=== PATIENT | female | born 1990 | race African-American/Black ===

== ENCOUNTER 2016-04-26 08:21 | Emergency (ER) | payer MEDICAID, OTHER ==
[~2016-04-26] VITALS: Wt 68.0 kg
[2016-04-26] MEDS ORDERED: ALBU18HF INHALATION (09:16)
--- NOTE | 2016-04-26 09:21 | ERD ---
ER Documentation Chief Complaint Date/Time DATE: 04/26/16 TIME: 09:17 Chief Complaint ran out of albuterol, mild sob for the past few days with dry cough HPI 26-year-old female with history of asthma is complaining of mild shortness of breath at night for the last 3-4 days. Patient reports feeling warm while she is short of breath, and has a dry cough at night. She had ran out albuterol inhaler. Patient is new to the area does not have a PCP. She is here for refill of the inhaler. Denies shortness of breath at this time. Denies runny nose or nasal congestion. Denies chest pain. Denies headaches. ROS All systems reviewed and are negative except as per history of present illness. Medications Home Meds Active Scripts Albuterol Sulfate* (Ventolin HFA*) 18 Gm Hfa.aer.ad, 2 PUFF INHALATION Q4H, #1 INHALER Prov:RILEY PARIS. SHIPPING COORDINATOR 04/26/16 PMhx/Soc History of asthma Physical Exam Vitals Vital Signs Date Time Temp Pulse Resp B/P Pulse Ox O2 Delivery O2 Flow Rate FiO2 04/26/16 08:22 98.8 91 20 121/68 99 Physical Exam General impression: Well-developed, well-nourished. Alert, oriented, in no acute distress Head: Normocephalic, atraumatic. Eyes: PERRL, EOM normal. Conjunctiva not injected. ENT: Nasal mucosa, oral mucosa and oropharynx are normal. Neck: Supple, nontender. No lymphadenopathy. No nuchal rigidity. Respiration: Normal respiratory effort. Lungs clear to auscultate bilaterally. No wheezes, rales or rhonchi. Cardiovascular: Regular rate and rhythm. No murmurs or extra heart sounds. Neuro: Mental status normal, speech normal. 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 Skin: Normal turgor. No rash or lesions. Psych: Normal mood and affect. Procedures/MDM Well-appearing 18-year-old female with history of asthma is here for refill of albuterol inhaler. Patient does not have any short of breath at this time, her lungs are clear to auscultate. She had no sign of acute asthma exacerbation. I doubt pneumonia, pneumothorax, or PE. Patient appears well, stable for discharge and outpatient management. Community clinic referral information provided for the patient. Medical decision making shared with patient and family. Education provided to patient and family. Patient and family expressed understanding of the plan. Medications on discharge: Albuterol HFA. Follow-up: Primary care provider in 2-3 days or return to ED if worse. Departure Diagnosis: Primary Impression: Asthma Asthma severity: unspecified severity Asthma complication type: uncomplicated Qualified Code: J45.909 - Uncomplicated asthma, unspecified asthma severity Condition: Good Patient Instructions: Asthma Referrals: [facility] YOU HAVE RECEIVED A MEDICAL SCREENING EXAM AND THE RESULTS INDICATE THAT YOU DO NOT HAVE A CONDITION THAT REQUIRES URGENT TREATMENT IN THE EMERGENCY DEPARTMENT. FURTHER EVALUATION AND TREATMENT OF YOUR CONDITION CAN WAIT UNTIL YOU ARE SEEN IN YOUR DOCTORS OFFICE WITHIN THE NEXT 1-2 DAYS. IT IS YOUR RESPONSIBILITY TO MAKE AN APPOINTMENT FOR FOLOW-UP CARE. IF YOU HAVE A PRIMARY DOCTOR --you should call your primary doctor and schedule an appointment IF YOU DO NOT HAVE A PRIMARY DOCTOR YOU CAN CALL OUR PHYSICIAN REFERRAL HOTLINE AT IF YOU CAN NOT AFFORD TO SEE A PHYSICIAN YOU CAN CHOSE FROM THE FOLLOWING [facility] [address] [facility]. [facility] [address] [facility] [address] [facility] [address] [facility]. [facility] [address] [facility]. [facility]. [address] Additional Instructions: Call your primary care doctor TOMORROW for an appointment during the next 2-3 days.See the doctor sooner or return here if your condition worsens before your appointment time. RILEY PARIS NP Apr 26, 2016 09:21
[2016-04-26 09:28] VITALS: BP 0/0; PULSE 80; RESP 20
== END 2016-04-26 09:39 | disposition home or self-care (01) ==
LOC: FTE 08:21
DX: J45.901 Unspecified asthma with (acute) exacerbation (principal)
CPT/HCPCS: 99283

== ENCOUNTER 2016-07-08 17:28 | Emergency (ER) | payer SELFPAY ==
[~2016-07-08] VITALS: Ht 167.6 cm; Wt 76.0 kg
[~2016-07-08 17:28] MED LIST: ALBU18HF INHALATION
[2016-07-08 17:29] VITALS: Ht 167.6 cm; Wt 76.0 kg
[2016-07-08] MEDS ORDERED: ALBUTEROL 0.083% (NEB) 2.5 MG/3 ML AMP HHN STA (18:17)
[2016-07-08] MEDS ORDERED: DEXAMETHASONE 10 MG/ML 1 ML INJ IM ONE (18:30)
[2016-07-08] MEDS ORDERED: IPRATROPIUM (NEB) 0.5 MG/2.5 ML AMP HHN ONE (18:30)
--- NOTE | 2016-07-08 19:34 | RADRPT ---
PROCEDURE: XR Chest. CLINICAL INDICATION: Shortness of breath. TECHNIQUE: Single frontal chest x-ray. COMPARISON: None. FINDINGS: The cardiomediastinal silhouette is unremarkable. There is no congestive heart failure.. No focal i nfiltrate is seen. There is no pleural effusion. There is no pneumothorax. The osseous structures are unremarkable. IMPRESSION: 1. No active disease. RPTAT: HMVK .Jose Juan Camarena MD, MD Date Time Electronically viewed and signed by .Jose Juan Camarena MD, MD on 07/08/2016 19:34 .K/
[2016-07-08] MEDS ORDERED: PRED20TA PO (20:02)
[2016-07-08] MEDS ORDERED: ALBU2.5V3 NEB (20:05)
[2016-07-08 20:18] VITALS: PULSE 89; RESP 20; TEMP 98.9
--- NOTE | 2016-07-09 01:54 | ERD ---
ER Documentation Chief Complaint Date/Time DATE: 07/09/16 TIME: 01:42 Chief Complaint FLU SYMPTOMS HPI This patient is a 26-year-old female with past medical history of asthma presenting to the emergency department for shortness of breath ongoing intermittently for the past 4 days. The patient states her symptoms have been worsening today. The patient only uses an inhaler at home every 4 hours as needed for asthma symptoms. The patient admits to mild tactile fevers at home. Symptoms are currently moderate. The patient denies chest pain, urinary symptoms, cough, or other symptoms at this time. ROS All systems reviewed and are negative except as per history of present illness. Medications Home Meds Active Scripts Albuterol Sulfate* (Albuterol Sulfate* Neb) 0.083%-3 Ml Neb, 2.5 MG NEB Q4 Y for SHORTNESS OF BREATH, #30 EA Prov:MITCHELL IGLESIAS PA-C 07/08/16 Prednisone* (Prednisone*) 20 Mg Tab, 40 MG PO DAILY for 4 Days, #8 TAB Prov:MITCHELL IGLESIAS PA-C 07/08/16 Albuterol Sulfate* (Ventolin HFA*) 18 Gm Hfa.aer.ad, 2 PUFF INHALATION Q4H, #1 INHALER Prov:RILEY PARIS NP 04/26/16 Allergies Allergies: Coded Allergies: No Known Allergy (Unverified , 04/26/16) PMhx/Soc History of Surgery: No Anesthesia Reaction: No Hx Neurological Disorder: No Hx Respiratory Disorders: Yes (ASTHMA) Hx Cardiac Disorders: No Hx Psychiatric Problems: No Hx Miscellaneous Medical Probl: No Hx Alcohol Use: Yes (OCC) Hx Substance Use: No Hx Tobacco Use: No Smoking Status: Never smoker Physical Exam Vitals Vital Signs Date Time Temp Pulse Resp B/P Pulse Ox O2 Delivery O2 Flow Rate FiO2 07/08/16 20:18 98.9 89 20 100 Room Air 07/08/16 18:42 89 18 100 21 07/08/16 17:29 99.9 104 18 125/73 100 Physical Exam Const: The patient is resting in the gurney in mild distress. Head: Atraumatic Eyes: Normal Conjunctiva ENT: Normal External Ears, Nose and Mouth. Neck: Full range of motion..~ No meningismus. Resp: Shallow inspiratory effort. No wheezing, rales, or rhonchi noted. There are no intercostal retractions or other signs of acute respiratory distress. Cardio: Regular rate and rhythm, no murmurs Abd: Soft, non tender, non distended. Normal bowel sounds Skin: No petechiae or rashes Back: No midline or flank tenderness Ext: No cyanosis, or edema Neur: Awake and alert Psych: Normal Mood and Affect Results 24 hrs Current Medications Medications (Trade) Dose Ordered Sig/Kallie Route PRN Reason Start Time Stop Time Status Last Admin Dose Admin Dexamethasone (Decadron) 10 mg ONCE ONCE IM 07/08/16 18:30 07/08/16 18:31 DC 07/08/16 18:33 Albuterol (Proventil 0.083% (Neb)) 2.5 mg ONCE STAT HHN 07/08/16 18:17 07/08/16 18:19 DC 07/08/16 18:42 Ipratropium [place] (Atrovent 0.02% (Neb)) 0.5 mg ONCE ONCE HHN 07/08/16 18:30 07/08/16 18:31 DC 07/08/16 18:42 PROCEDURE: XR Chest. CLINICAL INDICATION: Shortness of breath. TECHNIQUE: Single frontal chest x-ray. COMPARISON: None. FINDINGS: The cardiomediastinal silhouette is unremarkable. There is no congestive heart failure.. No focal infiltrate is seen. There is no pleural effusion. There is no pneumothorax. The osseous structures are unremarkable. IMPRESSION: 1. No active disease. RPTAT: HMVK .Jose Juan Camarena MD, Date Time Electronically viewed and signed by .Jose Juan Camarena MD, MD on 07/08/2016 19:34 .K/ CC: MITCHELL IGLESIAS PA-C Procedures/[facility] 26-year-old female presents to the emergency department secondary to complaints of shortness of breath. On physical examination the patient is slightly tachycardic at 104. The patient's pulse ox is 100% on room air although the patient does appear to be in slight distress secondary to difficulty breathing. There are no intercostal retractions or other signs of acute respiratory distress but because of the patient's shallow inspiratory effort I did treat her in the department with a medication nebulizer with albuterol and ipratropium and she was feeling significantly improved on reevaluation. Chest x -ray was negative for any infiltrates or other abnormalities. The patient is stable for outpatient management with a prescription for albuterol and prednisone. The patient understands and agrees with the discharge plan and diagnosis. I have low suspicion for pneumonia, status asthmaticus, or other emergent conditions. Strict ER return precautions were discussed and the patient is to have close follow-up with the primary care physician. Departure Diagnosis: Primary Impression: Asthma exacerbation Condition: Fair Patient Instructions: Asthma Medications, My Asthma Symptom Diary Referrals: [facility] YOU HAVE RECEIVED A MEDICAL SCREENING EXAM AND THE RESULTS INDICATE THAT YOU DO NOT HAVE A CONDITION THAT REQUIRES URGENT TREATMENT IN THE EMERGENCY DEPARTMENT. FURTHER EVALUATION AND TREATMENT OF YOUR CONDITION CAN WAIT UNTIL YOU ARE SEEN IN YOUR DOCTORS OFFICE WITHIN THE NEXT 1-2 DAYS. IT IS YOUR RESPONSIBILITY TO MAKE AN APPOINTMENT FOR FOLOW-UP CARE. IF YOU HAVE A PRIMARY DOCTOR --you should call your primary doctor and schedule an appointment IF YOU DO NOT HAVE A PRIMARY DOCTOR YOU CAN CALL OUR PHYSICIAN REFERRAL HOTLINE AT IF YOU CAN NOT AFFORD TO SEE A PHYSICIAN YOU CAN CHOSE FROM THE FOLLOWING [facility] CLINICS [facility] [address] [facility]. [facility] [address] [facility] [address] [facility] [address] [facility]. [facility] [address] [facility]. [facility] [address] Additional Instructions: Follow up with your PCP within the next 1-3 days for a repeat evaluation and a possible referral to a specialist, if required. Return the the emergency department immediately if symptoms worsen or change. If you have any questions regarding medications, ask your pharmacist or us before you leave. If any adverse reactions, occur while taking your medications, discontinue the treatment and return to the emergency department immediately. If any new or worsening symptoms, uncontrolled fevers, or other unexplained symptoms occur, return to the emergency department immediately. Take your medications as directed, and complete the entire course of treatment. MITCHELL IGLESIAS PA-C July 09, 2016 01:53
== END 2016-07-08 20:15 | disposition home or self-care (01) ==
LOC: FTE 17:28
DX: J45.901 Unspecified asthma with (acute) exacerbation (principal)
CPT/HCPCS: 71010; 94664; 96372; 99284; J1100

== ENCOUNTER 2016-08-03 11:37 | Emergency (ER) | payer MEDICAID ==
[~2016-08-03] VITALS: Ht 167.6 cm; Wt 77.5 kg
[~2016-08-03 11:37] MED LIST changes: +ALBU2.5V3 NEB; +PRED20TA PO
[2016-08-03 11:39] VITALS: Ht 167.6 cm; Wt 77.5 kg
[2016-08-03 12:21] LABS: ADD SCAN DIFF NO
[2016-08-03 12:28] LABS: BASOPHILS % 0.3 % (0.0-2.0); EOSINOPHILS # 0.1 10^3/ul (0.0-0.5); EOSINOPHILS % 1.9 % (0.0-7.0); HEMATOCRIT 41.7 % (37.0-47.0); HEMOGLOBIN 13.4 g/dl (12.0-16.0); LYMPHOCYTES # 2.2 10^3/ul (0.8-2.9); LYMPHOCYTES % 34.5 % (15.0-51.0); MEAN CORPUSCULAR HEMOGLOBIN 27.6 pg (29.0-33.0); MEAN CORPUSCULAR HGB CONC 32.1 g/dl (32.0-37.0); MONOCYTE # 0.7 10^3/ul (0.3-0.9); MONOCYTES % 10.1 % (0.0-11.0); NEUTROPHIL # 3.4 10^3/ul (1.6-7.5); PLATELET COUNT 285 10^3/UL (140-415); RED BLOOD COUNT 4.85 10^6/ul (4.20-5.40); RED CELL DISTRIBUTION WIDTH 14.2 % (11.5-14.5); WHITE BLOOD COUNT 6.4 10^3/ul (4.8-10.8)
[2016-08-03 12:34] LABS: ADD UMIC YES; UR BILIRUBIN (Dip) NEGATIVE (NEGATIVE); UR BLOOD (Dip) TRACE (NEGATIVE); UR CLARITY CLEAR (CLEAR); UR COLOR LT. YELLOW (YELLOW); UR GLUCOSE (Dip) NEGATIVE (NEGATIVE); UR KETONES (Dip) NEGATIVE (NEGATIVE); UR LEUKOCYTE ESTERASE (Dip) NEGATIVE (NEGATIVE); UR NITRITE (Dip) NEGATIVE (NEGATIVE); UR TOTAL PROTEIN (Dip) NEGATIVE (NEGATIVE); UR UROBILINOGEN (Dip) 0.2 E.U./dL (0.1-1.0)
[2016-08-03 12:43] LABS: ALBUMIN 5.1 g/dl (3.3-4.9); ALBUMIN/GLOBULIN RATIO 1.59; BILIRUBIN,INDIRECT 0.6 mg/dl (0-1.1); BILIRUBIN,TOTAL 0.6 mg/dl (0.2-1.3); CALCIUM 9.6 mg/dl (8.4-10.2); CREATININE 0.95 mg/dl (0.44-1.00); POTASSIUM 3.9 mmol/L (3.5-5.1); TOTAL PROTEIN 8.3 g/dl (6.1-8.1)
[2016-08-03 13:09] LABS: URINE RBCS 0-2 /HPF (0)
--- NOTE | 2016-08-03 13:24 | RADRPT ---
PROCEDURE: US Pelvis. CLINICAL INDICATION: Pelvic pain TECHNIQUE: Multiple sonographic images of the pelvis were obtained utilizing a transabdominal and endovaginal technique. The images were reviewed on a PACS workstation. COMPARISON: None. FINDINGS: The uterus is normal in size and demonstrates a normal appearance of the myometrium. The endometria l stripe is homogeneous in appearance and has the thickness of 5.5 mm. No intrauterine gestation is noted. Normal Doppler flow is identified in both ovaries. The ovaries are enlarged. The right ovary measures 6.3 x 5.3 x 5.5 cm. There is a 4.8 x 4.2 cm simple cyst in the right ovary. The left ovary measures 7.5 x 5.6 x 5.8 cm. There is a large complex cyst in the left ovary measurin g 6.5 x 5.0 cm. There is echogenic internal debris and a thick septation within this cyst. No free fluid is present within the pelvis.. RPTAT: AA IMPRESSION: No intrauterine gestation visualized. Enlarged bilateral ovaries. Large simple cyst in the right ovary measuring 4.8 cm. Large complex c yst in the left ovary measuring 6.5 cm. Differential diagnosis includes early , missed or ectopic . Follow-up ultrasound and HCG levels is recommended. .Negrito Herrera MD, MD Date Time Electronically viewed and signed by .Negrito Herrera MD, MD on 08/03/2016 13:24 .S/
[2016-08-03] MEDS ORDERED: ACET325T33 PO (15:25)
[2016-08-03] MEDS ORDERED: ACETAMINOPHEN 325 MG TAB PO ONE (15:30)
--- NOTE | 2016-08-03 15:43 | ERD ---
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 Reports that both of her breasts are also eating. States that it is a sharp pain. States that her last menses was on July 24, 2016. Denies any chest pain, shortness of breath, abdominal pain, nausea, vomiting, diarrhea, fever, chills. ROS All systems reviewed and are negative except as per history of present illness. Medications Home Meds Active Scripts Acetaminophen* (Tylenol*) 325 Mg Tablet, 1 TAB PO Q6 Y for PAIN AND OR ELEVATED TEMP, #20 TAB Prov:SUZIE SIMS PA-C 08/03/16 Albuterol Sulfate* (Albuterol Sulfate* Neb) 0.083%-3 Ml Neb, 2.5 MG NEB Q4 Y for SHORTNESS OF BREATH, #30 EA Prov:MITCHELL IGLESIAS PA-C 07/08/16 Prednisone* (Prednisone*) 20 Mg Tab, 40 MG PO DAILY for 4 Days, #8 TAB Prov:MITCHELL IGLESIAS PA-C 07/08/16 Albuterol Sulfate* (Ventolin HFA*) 18 Gm Hfa.aer.ad, 2 PUFF INHALATION Q4H, #1 INHALER Prov:RILEY PARIS TAG MARKER 04/26/16 Allergies Allergies: Coded Allergies: No Known Allergy (Unverified , 08/06/16) PMhx/Soc History of Surgery: Yes (Right breast tumor) Anesthesia Reaction: No Hx Neurological Disorder: No Hx Respiratory Disorders: Yes (ASTHMA) Hx Cardiac Disorders: No Hx Psychiatric Problems: No Hx Miscellaneous Medical Probl: No Hx Alcohol Use: Yes (OCC) Hx Substance Use: No Hx Tobacco Use: No Smoking Status: Never smoker Physical Exam Vitals Vital Signs Date Time Temp Pulse Resp B/P Pulse Ox O2 Delivery O2 Flow Rate FiO2 08/03/16 16:02 98.2 78 20 111/62 98 Room Air 08/03/16 11:39 98.5 108 20 107/60 98 Physical Exam Const: Rsk-bbd-jmukabibe, well-nourished. In no acute distress. Head: Atraumatic, normocephalic Eyes: Normal Conjunctiva without injection. No purulent discharge. ENT: Normal external ear, nose. Moist oropharynx without tonsillar exudates. Non -erythematous pharynx. Uvula midline. No drooling. No trismus. Neck: No cervical midline tenderness. Full range of motion. No meningismus. No cervical lymphadenopathy. No JVD. Resp: Clear to auscultation bilaterally. No wheezing, rhonchi, rales, or crackles. No accessory muscle use. No retractions. Cardio: Regular rate and rhythm. No murmurs, rubs or gallops. Abd: Soft, lower abdominal tenderness, non distended. Normal bowel sounds. No palpable masses. No rebound tenderness. No guarding. Negative McBurney's point. Negative psoas sign. Negative obturator sign. Skin: No petechiae or rashes Back: No midline tenderness. No CVA tenderness. Ext: No cyanosis, or edema. Neur: Awake and alert. Normal gait. Normal coordination. Psych: Normal Mood and Affect Result Diagram: 08/03/16 1210 08/03/16 1210 Results 24 hrs Laboratory Tests Test 08/03/16 12:00 08/03/16 12:10 Urine Color LT. YELLOW Urine Clarity CLEAR Urine pH 6.0 Urine Specific [place] 1.015 Urine Ketones NEGATIVE Urine Nitrite NEGATIVE Urine Bilirubin NEGATIVE Urine Urobilinogen 0.2 E.U./dL Urine Leukocyte Esterase NEGATIVE Urine Microscopic RBC 0-2/HPF Urine Microscopic WBC 0-2/HPF Urine Epithelial Cells FEW Urine Hemoglobin TRACE Urine Glucose NEGATIVE% Urine Total Protein NEGATIVE White Blood Count 6.410^3/ul Red Blood Count 4.8510^6/ul Hemoglobin 13.4g/dl Hematocrit 41.7% Mean Corpuscular Volume 86.0fl Mean Corpuscular Hemoglobin 27.6pg Mean Corpuscular Hemoglobin Concent 32.1g/dl Red Cell Distribution Width 14.2% Platelet Count 51015^3/UL Mean Platelet Volume 9.0fl Neutrophils % 53.0% Lymphocytes % 34.5% Monocytes % 10.1% Eosinophils % 1.9% Basophils % 0.3% Nucleated Red Blood Cells % 0.0/100WBC Neutrophils # 3.410^3/ul Lymphocytes # 2.210^3/ul Monocytes # 0.710^3/ul Eosinophils # 0.110^3/ul Basophils # 0.010^3/ul Nucleated Red Blood Cells # 0.010^3/ul Sodium Level 141mmol/L Potassium Level 3.9mmol/L Chloride Level 106mmol/L Carbon Dioxide Level 26mmol/L Anion Gap 13 Blood Urea Nitrogen 9mg/dl Creatinine 0.95mg/dl Glucose Level 79mg/dl Calcium Level 9.6mg/dl Total Bilirubin 0.6mg/dl Direct Bilirubin 0.00mg/dl Indirect Bilirubin 0.6mg/dl Aspartate Amino Transf (AST/SGOT) 22IU/L Alanine Aminotransferase (ALT/SGPT) 27IU/L Alkaline Phosphatase 74IU/L Total Protein 8.3g/dl Albumin 5.1g/dl Globulin 3.20g/dl Albumin/Globulin Ratio 1.59 Lipase 107U/L Beta HCG, Quantitative 121.4mIU/ml Current Medications Medications (Trade) Dose Ordered Sig/Kallie Route PRN Reason Start Time Stop Time Status Last Admin Dose Admin Acetaminophen (Tylenol Tab) 650 mg ONCE ONCE PO 08/03/16 15:30 08/03/16 15:31 DC 08/03/16 15:30 Procedures/MDM This is a 26-year-old female patient with no significant past medical history presents the ED complaining of lower abdominal pain that started 2 weeks ago. Patient is afebrile nontoxic appearing. Patient has normal vital signs. An ultrasound, beta-hCG, CBC, type and RH, UA was ordered to evaluate patient. CBC: No evidence of severe infection or anemia Urine: No elevation in nitrites, leukocyte esterase, hematuria. No evidence of UTI Rh: A positive. No indication for Rhogam at this time. beta Hc.4 PROCEDURE: Bilateral breast ultrasound. CLINICAL INDICATION: Bilateral breast pain. TECHNIQUE: Ultrasound of the whole right and left breast was performed with a high frequency linear transducer. The images were reviewed on a high-resolution PACS monitor. COMPARISON: None available. FINDINGS: Right breast: There is no mass, cyst, or sonographic abnormality. The axillary region is unremarkable. Left breast: There is no mass, cyst, or sonographic abnormality. The axillary region is unremarkable. IMPRESSION: 1. No sonographic evidence of malignancy. 2. No acute abnormality or findings to suggest a source of the patient's symptoms. BIRADS 1: Follow-up as clinically warranted. Otherwise, the patient can begin routine annual screening mammography at age 38. A reminder letter will be sent to the patient for their next mammogram through our data base. PROCEDURE: US Pelvis. CLINICAL INDICATION: Pelvic pain TECHNIQUE: Multiple sonographic images of the pelvis were obtained utilizing a transabdominal and endovaginal technique. The images were reviewed on a PACS workstation. COMPARISON: None. FINDINGS: The uterus is normal in size and demonstrates a normal appearance of the myometrium. The endometrial stripe is homogeneous in appearance and has the thickness of 5.5 mm. No intrauterine gestation is noted. Normal Doppler flow is identified in both ovaries. The ovaries are enlarged. The right ovary measures 6.3 x 5.3 x 5.5 cm. There is a 4.8 x 4.2 cm simple cyst in the right ovary. The left ovary measures 7.5 x 5.6 x 5.8 cm. There is a large complex cyst in the left ovary measuring 6.5 x 5.0 cm. There is echogenic internal debris and a thick septation within this cyst. No free fluid is present within the pelvis.. RPTAT: AA IMPRESSION: No intrauterine gestation visualized. Enlarged bilateral ovaries. Large simple cyst in the right ovary measuring 4.8 cm. Large complex cyst in the left ovary measuring 6.5 cm. Differential diagnosis includes early , missed or ectopic . Follow-up ultrasound and HCG levels is recommended. Patient's bleeding symptoms have stabilized while in the department. Differential diagnosis includes early , missed . Patient strictly instructed to return to the ED in 2 days to rule out ectopic . Low suspicion for symptomatic anemia, sepsis, PID, appendicitis, ovarian torsion, tubo-ovarian abscess, surgical abdomen, or other emergent conditions. Patient was educated that there is a risk for threatened . Differential diagnosis considered include but is not limited to mastitis, fibroadenoma, cyst, fibrocystic changes. Low suspicion for galactocele, fat necrosis, malignancy, deep space infection, sepsis, cellulitis, or other emergent conditions. Discharge medications: Tylenol Patient to follow up with INTEGRATION SOFTWARE DEVELOPER in 2 days for further evaluation and treatment. Patient is to return sooner to the ED for any worsening symptoms. Patient's questions were answered. Patient understood and agreed with discharge plan. Departure Diagnosis: Primary Impression: Abdominal pain Abdominal location: unspecified location Qualified Code: R10.9 - Abdominal pain, unspecified location Additional Impressions: Breast pain Vaginal bleeding Condition: Stable Patient Instructions: Breast Self-Exam (BSE), Vaginal Bleed in , Abdominal Pain, Early Referrals: [facility] YOU HAVE RECEIVED A MEDICAL SCREENING EXAM AND THE RESULTS INDICATE THAT YOU DO NOT HAVE A CONDITION THAT REQUIRES URGENT TREATMENT IN THE EMERGENCY DEPARTMENT. FURTHER EVALUATION AND TREATMENT OF YOUR CONDITION CAN WAIT UNTIL YOU ARE SEEN IN YOUR DOCTORS OFFICE WITHIN THE NEXT 1-2 DAYS. IT IS YOUR RESPONSIBILITY TO MAKE AN APPOINTMENT FOR FOLOW-UP CARE. IF YOU HAVE A PRIMARY DOCTOR --you should call your primary doctor and schedule an appointment IF YOU DO NOT HAVE A PRIMARY DOCTOR YOU CAN CALL OUR PHYSICIAN REFERRAL HOTLINE AT IF YOU CAN NOT AFFORD TO SEE A PHYSICIAN YOU CAN CHOSE FROM THE FOLLOWING [facility] [address] [facility] [address] [facility] [address] [facility] [address] [address] [facility] [address] [facility]. [facility]. [address] [facility]. [facility] YOU HAVE RECEIVED A MEDICAL SCREENING EXAM AND THE RESULTS INDICATE THAT YOU DO NOT HAVE A CONDITION THAT REQUIRES URGENT TREATMENT IN THE EMERGENCY DEPARTMENT. FURTHER EVALUATION AND TREATMENT OF YOUR CONDITION CAN WAIT UNTIL YOU ARE SEEN IN YOUR DOCTORS OFFICE WITHIN THE NEXT 1-2 DAYS. IT IS YOUR RESPONSIBILITY TO MAKE AN APPOINTMENT FOR FOLOW-UP CARE. IF YOU HAVE A PRIMARY DOCTOR --you should call your primary doctor and schedule and appointment IF YOU DO NOT HAVE A PRIMARY DOCTOR YOU CAN CALL OUR PHYSICIAN REFERRAL HOTLINE AT . IF YOU CAN NOT AFFORD TO SEE A PHYSICIAN YOU CAN CHOSE FROM THE FOLLOWING [facility] INSTITUTIONS: [facility] [address] [place] [address] [facility] [address] [place] [address] [facility] + [facility] [address] [place] [address] INTEGRATION SOFTWARE DEVELOPER [place] [address] [facility] [address] [place] [address] OFFICE FAX , [address] [address] [place] [address] [address] COREA MARTHA [address] [place] [address] [address] [facility] [address], [address], [facility] [address] [address] [facility] [address] [facility] [place] [address] [facility] [address] [place] [address] [address] [facility] [address] - [address] MOTA DEISY [address] [facility] [address] [address], [facility] [address] [facility]. [address], [place] [address] [address] JORGENSEN, [facility] [address] [place], [place] [id number] [facility] Hours: 8:00 am - 5:00 pm Additional Instructions: Call your INTEGRATION SOFTWARE DEVELOPER or here in the ED to repeat beta Hcg and ultrasound in 2 days. Return to the ED the sooner or return here if your condition worsens before your appointment time. SUZIE SIMS PA-C Aug 03, 2016 15:43
--- NOTE | 2016-08-03 15:51 | RADRPT ---
PROCEDURE: Bilateral breast ultrasound. CLINICAL INDICATION: Bilateral breast pain. TECHNIQUE: Ultrasound of the whole right and left breast was performed with a high frequency linear transducer. The images were reviewed on a high-resolution PACS monitor. COMPARISON: None available. FINDINGS: Right breast: There is no mass, cyst, or sonographic abnormality. The axillary region is unremarkable. Left breast: There is no mass, cyst, or sonographic abnormality. The axillary region is unremarkable. IMPRESSION: 1. No sonographic evidence of malignancy. 2. No acute abnormality or findings to suggest a source of the patient's symptoms. BIRADS 1: Follow-up as clinically warranted. Otherwise, the patient can begin routine annual screen ing mammography at age 38. A reminder letter will be sent to the patient for their next mammogram through our data base. RPTAT: GG .Saad Cam MD, Date Time Electronically viewed and signed by .Saad Cam MD, on 08/03/2016 15:50 .P/
[2016-08-03 16:02] VITALS: BP 111/62; PULSE 78; RESP 20; TEMP 98.2
== END 2016-08-03 16:03 | disposition home or self-care (01) ==
LOC: FTE 11:37
DX: R10.30 Lower abdominal pain, unspecified (principal); N64.4 Mastodynia; N93.9 Abnormal uterine and vaginal bleeding, unspecified; J45.909 Unspecified asthma, uncomplicated; R10.2 Pelvic and perineal pain
CPT/HCPCS: 76641; 76801; 76817; 80053; 81001; 83690; 84702; 85025; 86900; 86901; Z7610; 36415

== ENCOUNTER 2016-08-06 20:16 | Emergency (ER) | payer MEDICAID ==
[~2016-08-06] VITALS: Wt 78.0 kg
[~2016-08-06 20:16] MED LIST changes: +ACET325T33 PO
[2016-08-06 22:19] LABS: ADD SCAN DIFF NO
[2016-08-06 22:21] LABS: BASOPHILS % 0.1 % (0.0-2.0); EOSINOPHILS # 0.1 10^3/ul (0.0-0.5); EOSINOPHILS % 1.7 % (0.0-7.0); HEMATOCRIT 40.5 % (37.0-47.0); HEMOGLOBIN 13.2 g/dl (12.0-16.0); LYMPHOCYTES # 3.4 10^3/ul (0.8-2.9); LYMPHOCYTES % 43.3 % (15.0-51.0); MEAN CORPUSCULAR HEMOGLOBIN 28.1 pg (29.0-33.0); MEAN CORPUSCULAR HGB CONC 32.6 g/dl (32.0-37.0); MEAN CORPUSCULAR VOLUME 86.2 fl (82.0-101.0); MEAN PLATELET VOLUME 9.1 fl (7.4-10.4); MONOCYTE # 0.7 10^3/ul (0.3-0.9); MONOCYTES % 8.3 % (0.0-11.0); NEUTROPHIL # 3.6 10^3/ul (1.6-7.5); NEUTROPHILS % 46.3 % (39.0-77.0); PLATELET COUNT 290 10^3/UL (140-415); WHITE BLOOD COUNT 7.8 10^3/ul (4.8-10.8)
[2016-08-06 22:24] LABS: ADD UMIC YES; UR BILIRUBIN (Dip) NEGATIVE (NEGATIVE); UR BLOOD (Dip) TRACE (NEGATIVE); UR CLARITY CLEAR (CLEAR); UR COLOR LT. YELLOW (YELLOW); UR GLUCOSE (Dip) NEGATIVE (NEGATIVE); UR KETONES (Dip) NEGATIVE (NEGATIVE); UR LEUKOCYTE ESTERASE (Dip) NEGATIVE (NEGATIVE); UR NITRITE (Dip) NEGATIVE (NEGATIVE); UR TOTAL PROTEIN (Dip) NEGATIVE (NEGATIVE); UR UROBILINOGEN (Dip) 0.2 E.U./dL (0.1-1.0)
[2016-08-06 22:31] LABS: URINE RBCS NONE SEEN /HPF (0)
--- NOTE | 2016-08-06 23:11 | RADRPT ---
PROCEDURE: US OB. CLINICAL INDICATION: . Pain. TECHNIQUE: Multiple sonographic images of the pelvis were obtained. Transabdominal and transvagin al views of the pelvis are available for review. The images were reviewed on a PACS workstation. COMPARISON: 08/03/2016 FINDINGS: An intrauterine probable early gestational sac at 2.6 mm is identified, corresponding to 4 weeks 6 d ays size.. No pole or cardiac activity is detected. No subchorionic hemorrhage is identifi ed. The ovaries unchanged. Bilateral ovarian vascular flow is present. There is a complex likely hemorrhagic 4.4 x 2.9 x 3 cm right ovarian cyst. There is a large simple 5 x 5.9 x 6 cm left ovaria n cyst.. There is no adnexal mass. Small amount of free fluid is noted in the posterior caliber sa c. IMPRESSION: Intrauterine sac-like structure at 4 weeks 6 days size without pole or heart motion, likely re presents an early intrauterine too small to identify a pole. No suspicious adnexal mass or free fluid to suggest ectopic , although this cannot be excluded. Redemonstrated c omplex right and simple left ovarian cysts. Recommend correlation with quantitative beta HCG. RPTAT: HMVK .Jose Juan Camarena MD, Date Time Electronically viewed and signed by .Jose Juan Camarena MD, on 08/06/2016 23:11 .K/
[2016-08-06 23:42] VITALS: BP 118/72; PULSE 84; RESP 18; TEMP 98.8
--- NOTE | 2016-08-07 01:33 | ERD ---
ER Documentation Chief Complaint Date/Time DATE: 08/07/16 TIME: 01:30 Chief Complaint was told to come in 2 days for follow up. c/o abd pain HPI 26-year-old female who is A1 comes emergency department for recheck for her pelvic pain. She was seen here 3 days ago and had initially presented with pelvic pain, no bleeding, she states that she does have the same pelvic pain without change and has not had any bleeding since. She states that she is here to recheck, her beta quantitative was 121 previously, without any intrauterine seen. There are bilateral ovarian cyst seen. Pain is diffuse, achy, no difference in her previous visit. She denies fevers, chills. ROS All systems reviewed and are negative except as per history of present illness. Medications Home Meds Active Scripts Acetaminophen* (Tylenol*) 325 Mg Tablet, 1 TAB PO Q6 Y for PAIN AND OR ELEVATED TEMP, #20 TAB Prov:SUZIE SIMS PA-C 08/03/16 Albuterol Sulfate* (Albuterol Sulfate* Neb) 0.083%-3 Ml Neb, 2.5 MG NEB Q4 Y for SHORTNESS OF BREATH, #30 EA Prov:MITCHELL IGLESIAS PA-C 07/08/16 Prednisone* (Prednisone*) 20 Mg Tab, 40 MG PO DAILY for 4 Days, #8 TAB Prov:MITCHELL IGLESIAS PA-C 07/08/16 Albuterol Sulfate* (Ventolin HFA*) 18 Gm Hfa.aer.ad, 2 PUFF INHALATION Q4H, #1 INHALER Prov:RILEY PARIS NP 04/26/16 Allergies Allergies: Coded Allergies: No Known Allergy (Unverified , 08/06/16) PMhx/Soc History of Surgery: Yes (Right breast tumor) Anesthesia Reaction: No Hx Neurological Disorder: No Hx Respiratory Disorders: Yes (ASTHMA) Hx Cardiac Disorders: No Hx Psychiatric Problems: No Hx Miscellaneous Medical Probl: No Hx Alcohol Use: Yes (OCC) Hx Substance Use: No Hx Tobacco Use: No Physical Exam Vitals Vital Signs Date Time Temp Pulse Resp B/P Pulse Ox O2 Delivery O2 Flow Rate FiO2 08/06/16 23:42 98.8 84 18 118/72 99 Room Air 08/06/16 20:21 98.3 104 20 128/87 97 Physical Exam General: Well-developed, well-nourished. The patient appears in no acute distress. HEENT: Head is normocephalic, atraumatic. No scleral icterus. Neck: Supple. Nontender. Lungs: Clear to auscultation. Normal air movement. Heart: Regular rate and rhythm. S1 and S2 are normal. No murmurs, gallops, or rubs. Abdomen: Soft, nontender, nondistended. Bowel sounds are normoactive. Extremities: No clubbing or cyanosis. Normal pulses. Moving extremities x 4. No weakness. Neurologic: Alert and oriented 3. No focal deficits. Skin: Normal turgor. No rash or lesions. Result Diagram: 08/06/162153 Results 24 hrs Laboratory Tests Test 08/06/16 21:54 White Blood Count 7.810^3/ul Red Blood Count 4.7010^6/ul Hemoglobin 13.2g/dl Hematocrit 40.5% Mean Corpuscular Volume 86.2fl Mean Corpuscular Hemoglobin 28.1pg Mean Corpuscular Hemoglobin Concent 32.6g/dl Red Cell Distribution Width 14.0% Platelet Count 66245^3/UL Mean Platelet Volume 9.1fl Neutrophils % 46.3% Lymphocytes % 43.3% Monocytes % 8.3% Eosinophils % 1.7% Basophils % 0.1% Nucleated Red Blood Cells % 0.0/100WBC Neutrophils # 3.610^3/ul Lymphocytes # 3.410^3/ul Monocytes # 0.710^3/ul Eosinophils # 0.110^3/ul Basophils # 0.010^3/ul Nucleated Red Blood Cells # 0.010^3/ul Urine Color LT. YELLOW Urine Clarity CLEAR Urine pH 5.5 Urine Specific [place] 1.015 Urine Ketones NEGATIVE Urine Nitrite NEGATIVE Urine Bilirubin NEGATIVE Urine Urobilinogen 0.2 E.U./dL Urine Leukocyte Esterase NEGATIVE Urine Microscopic RBC NONE SEEN/HPF Urine Microscopic WBC NONE SEEN/HPF Urine Epithelial Cells FEW Urine Hemoglobin TRACE Urine Glucose NEGATIVE% Urine Total Protein NEGATIVE Beta HCG, Quantitative 139.1mIU/ml DIAGNOSTIC IMAGING REPORT Patient: DANETTE DIEZ : 1990 Age: 26 Sex: F MR #: [id number] DOS: 08/06/164 Ordering MD: MELINDA SNYDER PA-C Location: [facility] Room/Bed: PROCEDURE: US OB. CLINICAL INDICATION: . Pain. TECHNIQUE: Multiple sonographic images of the pelvis were obtained. Transabdominal and transvaginal views of the pelvis are available for review. The images were reviewed on a PACS workstation. COMPARISON: 08/03/2016 FINDINGS: An intrauterine probable early gestational sac at 2.6 mm is identified, corresponding to 4 weeks 6 days size.. No pole or cardiac activity is detected. No subchorionic hemorrhage is identified. The ovaries unchanged. Bilateral ovarian vascular flow is present. There is a complex likely hemorrhagic 4.4 x 2.9 x 3 cm right ovarian cyst. There is a large simple 5 x 5.9 x 6 cm left ovarian cyst.. There is no adnexal mass. Small amount of free fluid is noted in the posterior caliber sac. IMPRESSION: Intrauterine sac-like structure at 4 weeks 6 days size without pole or heart motion, likely represents an early intrauterine too small to identify a pole. No suspicious adnexal mass or free fluid to suggest ectopic , although this cannot be excluded. Redemonstrated complex right and simple left ovarian cysts. Recommend correlation with quantitative beta HCG. RPTAT: HMVK .Jose Juan Camarena MD, Date Time Electronically viewed and signed by .Jose Juan Camarena MD, MD on 08/06/2016 23:11 .K/ CC: MELINDA SNYDER PA-C Procedures/MDM MDM: 18-year-old female comes in with pelvic pain, recheck with positive test. Her beta quantitative is essentially the same in the 130s as compared to her previous 121. Pelvic ultrasound previously did not show any intrauterine sac, ovarian cysts seen bilaterally. As compared to previous ultrasound, today's ultrasound shows the same cyst, there are no adnexal masses or evidence of ectopic , there appears to be a small structure that is intrauterine that correlates to 4 weeks and 6 days. There is no pole or yolk sac. I have informed the patient that this is not rule out ectopic , as this is no definite intrauterine and strict ER return precautions were discussed at length with her. I suspect that this is likely an early intrauterine versus threatened given the slow climb of the beta quant at this time. Still cannot rule out ectopic therefore she needs to be checked in 1-2 days, or return sooner for any worsening symptoms including increased pain, or bleeding. Departure Diagnosis: Primary Impression: Pelvic pain Condition: Good Patient Instructions: : Your First Trimester Changes, Ovarian Cyst Additional Instructions: Recheck your pain in 1-2 days. Return sooner for any worsening or new symptoms. MELINDA SNYDER PA-C Aug 07, 2016 01:33
== END 2016-08-06 23:42 | disposition home or self-care (01) ==
LOC: FTE 20:16
DX: O26.891 Other specified pregnancy related conditions, first trimester (principal); R10.2 Pelvic and perineal pain; J45.909 Unspecified asthma, uncomplicated; O99.511 Diseases of the respiratory system complicating pregnancy, first trimester; Z3A.01 Less than 8 weeks gestation of pregnancy
CPT/HCPCS: 36415; 76801; 76817; 81001; 84702; 85025

== ENCOUNTER 2016-08-11 20:37 | Emergency (ER) | payer MEDICAID ==
[~2016-08-11] VITALS: Ht 167.6 cm; Wt 79.5 kg
[2016-08-11 20:40] VITALS: Ht 167.6 cm; Wt 79.5 kg
--- NOTE | 2016-08-11 20:57 | ERD ---
ER Documentation Chief Complaint Date/Time DATE: 08/11/16 TIME: 20:56 Chief Complaint lower abd pain x 6 days, unknown HPI This is a 26-year-old female history of asthma presenting to the emergency department complaining of mild pelvic pain for the past 6 days. Patient states the pain comes and goes, rating it mild in severity. Patient states that she was told that she may be , she was seen here last Sunday in which she had a positive hCG of 139 however they did not identify anything on ultrasound. Patient denies any vaginal bleeding, dysuria, fevers. Patient states that her last menstrual period is July 14, 2027 and it was very light and lasting 3 days ROS All systems reviewed and are negative except as per history of present illness. Medications Home Meds Active Scripts Acetaminophen* (Tylenol*) 325 Mg Tablet, 1 TAB PO Q6 Y for PAIN AND OR ELEVATED TEMP, #20 TAB Prov:SUZIE SIMS PA-C 08/03/16 Albuterol Sulfate* (Albuterol Sulfate* Neb) 0.083%-3 Ml Neb, 2.5 MG NEB Q4 Y for SHORTNESS OF BREATH, #30 EA Prov:MITCHELL IGLESIAS PA-C 07/08/16 Prednisone* (Prednisone*) 20 Mg Tab, 40 MG PO DAILY for 4 Days, #8 TAB Prov:MITCHELL IGLESIAS PA-C 07/08/16 Albuterol Sulfate* (Ventolin HFA*) 18 Gm Hfa.aer.ad, 2 PUFF INHALATION Q4H, #1 INHALER Prov:RILEY PARIS NP 04/26/16 Allergies Allergies: Coded Allergies: No Known Allergy (Unverified , 08/11/16) PMhx/Soc History of Surgery: No (breast tumor) Anesthesia Reaction: No Hx Neurological Disorder: No Hx Respiratory Disorders: Yes (ASTHMA) Hx Cardiac Disorders: No Hx Psychiatric Problems: No Hx Miscellaneous Medical Probl: No Hx Alcohol Use: No Hx Substance Use: No Hx Tobacco Use: No Smoking Status: Never smoker Physical Exam Vitals Vital Signs Date Time Temp Pulse Resp B/P Pulse Ox O2 Delivery O2 Flow Rate FiO2 08/11/16 20:40 98.5 89 20 130/70 100 Physical Exam Const: [] Head: Atraumatic Eyes: Normal Conjunctiva ENT: Normal External Ears, Nose and Mouth. Neck: Full range of motion..~ No meningismus. Resp: Clear to auscultation bilaterally Cardio: Regular rate and rhythm, no murmurs Abd: Soft, non tender, non distended. Normal bowel sounds Skin: No petechiae or rashes Back: No midline or flank tenderness Ext: No cyanosis, or edema Neur: Awake and alert Psych: Normal Mood and Affect Result Diagram: 08/11/164 Results 24 hrs Laboratory Tests Test 08/11/16 21:03 White Blood Count 7.110^3/ul Red Blood Count 4.5910^6/ul Hemoglobin 12.9g/dl Hematocrit 39.4% Mean Corpuscular Volume 85.8fl Mean Corpuscular Hemoglobin 28.1pg Mean Corpuscular Hemoglobin Concent 32.7g/dl Red Cell Distribution Width 13.9% Platelet Count 63370^3/UL Mean Platelet Volume 9.2fl Neutrophils % 48.9% Lymphocytes % 38.3% Monocytes % 8.6% Eosinophils % 3.8% Basophils % 0.3% Nucleated Red Blood Cells % 0.0/100WBC Neutrophils # 3.510^3/ul Lymphocytes # 2.710^3/ul Monocytes # 0.610^3/ul Eosinophils # 0.310^3/ul Basophils # 0.010^3/ul Nucleated Red Blood Cells # 0.010^3/ul Urine Color YELLOW Urine Clarity CLEAR Urine pH 5.0 Urine Specific [place] 1.026 Urine Ketones TRACEmg/dL Urine Nitrite NEGATIVEmg/dL Urine Bilirubin NEGATIVEmg/dL Urine Urobilinogen NEGATIVEmg/dL Urine Leukocyte Esterase NEGATIVELeu/ul Urine Hemoglobin NEGATIVEmg/dL Urine Glucose NEGATIVEmg/dL Urine Total Protein NEGATIVEmg/dl Beta HCG, Quantitative 144.3mIU/ml Procedures/MDM This is a 18-year-old female presenting to the emergency department with mild, coming and going pelvic pain for 6 days to recheck beta-hCG and ultrasound. Patient presented on August 06 with beta-hCG of 139 and her ultrasound stated that there is an intrauterine saclike structure without heart motion or pole. Comparing results with 5 days ago, the beta hCG was 139 and today the beta hCG is 144 it has not changed much in the past week. Lab work was done, CBC does not show any evidence of leukocytosis or anemia. Urinalysis was unremarkable for urinary tract infection or hemoglobinUltrasound was done today and results were also very similar to the last visit. I have consulted Dr. Layton in which she stated that this is not a viable and she suggest that patient follows up with an INJECTION MOLD TECHNICIAN to get a D&C as an outpatient. I have discussed with patient that she is able to follow-up with [facility] in [place] and I have given her a list of other INJE[facility] TECHNICIAN clinics. Patient is stable to be discharged home to follow-up with INJECTION MOLD TECHNICIAN. Discussed return to the ER for any worsening sinus symptoms. Patient understands and agrees with this plan Beta hCG on 08/06/2016: 139 OB ultrasound from 08/06/2016 Intrauterine sac-like structure at 4 weeks 6 days size without pole or heart motion, likely represents an early intrauterine too small to identify a pole. No suspicious adnexal mass or free fluid to suggest ectopic , although this cannot be excluded. Redemonstrated complex right and simple left ovarian cysts. Recommend correlation with quantitative beta HCG. OB ultrasound today: 1. Probable single early intrauterine gestation of approximately 4 weeks 6 days without evidence for a pole at this time or interval growth. Clinical correlation and follow-up ultrasound is suggested. 2. Bilateral large ovarian cysts with the right side presumably hemorrhagic. 3. Mild pelvic free fluid. Departure Diagnosis: Primary Impression: Threatened Condition: Stable SOREN JOHNSON PA-C Aug 11, 2016 20:57
[2016-08-11 21:20] LABS: ADD SCAN DIFF NO
[2016-08-11 21:24] LABS: BASOPHILS % 0.3 % (0.0-2.0); EOSINOPHILS # 0.3 10^3/ul (0.0-0.5); EOSINOPHILS % 3.8 % (0.0-7.0); HEMATOCRIT 39.4 % (37.0-47.0); HEMOGLOBIN 12.9 g/dl (12.0-16.0); LYMPHOCYTES # 2.7 10^3/ul (0.8-2.9); LYMPHOCYTES % 38.3 % (15.0-51.0); MEAN CORPUSCULAR HEMOGLOBIN 28.1 pg (29.0-33.0); MEAN CORPUSCULAR HGB CONC 32.7 g/dl (32.0-37.0); MEAN CORPUSCULAR VOLUME 85.8 fl (82.0-101.0); MEAN PLATELET VOLUME 9.2 fl (7.4-10.4); MONOCYTE # 0.6 10^3/ul (0.3-0.9); MONOCYTES % 8.6 % (0.0-11.0); NEUTROPHIL # 3.5 10^3/ul (1.6-7.5); NEUTROPHILS % 48.9 % (39.0-77.0); PLATELET COUNT 271 10^3/UL (140-415); RED BLOOD COUNT 4.59 10^6/ul (4.20-5.40); RED CELL DISTRIBUTION WIDTH 13.9 % (11.5-14.5); WHITE BLOOD COUNT 7.1 10^3/ul (4.8-10.8)
[2016-08-11 21:27] LABS: ADD UMIC NO; UR ASCORBIC ACID NEGATIVE (NEGATIVE); UR BILIRUBIN (Dip) NEGATIVE (NEGATIVE); UR BLOOD (Dip) NEGATIVE (NEGATIVE); UR CLARITY CLEAR (CLEAR); UR COLOR YELLOW (YELLOW); UR GLUCOSE (Dip) NEGATIVE (NEGATIVE); UR KETONES (Dip) TRACE mg/dL (NEGATIVE); UR LEUKOCYTE ESTERASE (Dip) NEGATIVE Leu/ul (NEGATIVE); UR NITRITE (Dip) NEGATIVE (NEGATIVE); UR SPECIFIC GRAVITY (Dip) 1.026 (1.003-1.030); UR TOTAL PROTEIN (Dip) NEGATIVE (NEGATIVE); UR UROBILINOGEN (Dip) NEGATIVE (NEGATIVE)
--- NOTE | 2016-08-11 22:47 | RADRPT ---
PROCEDURE: ULTRASOUND OBSTETRICAL CLINICAL INDICATION: 26-year-old female with vaginal bleeding. TECHNIQUE: Multiple sonographic images of the pelvis were obtained. The images were reviewed on a PACS workstation. COMPARISON: Ultrasound OB August 06, 2016. FINDINGS: The uterus is visualized and measures 6.6 x 3.7 x 5.0 cm. There is a single intrauterine gestation. The mean sac diameter is 0.29 cm. This yields an estimated gestational age of 4 weeks and 6 days. T he estimated date of delivery is April 14, 2017. There is no evidence for a pole. There i s mild pelvic free fluid. The right ovary has a normal echotexture and measures 5.8 x 3.7 x 4 point a cm. There is a septated right ovarian cyst measuring 4.8 x 2.6 x 4.2 cm. The left ovary has a nor mal echotexture and measures 6.5 x 4.7 x 5.4 cm. There is a left ovarian cyst measuring 5.1 x 3.9 x 4.8 cm. There is normal flow to the ovaries bilaterally. No adnexal masses are noted. IMPRESSION: 1. Probable single early intrauterine gestation of approximately 4 weeks 6 days without evidence fo r a pole at this time or interval growth. Clinical correlation and follow-up ultrasound is walls ggested. 2. Bilateral large ovarian cysts with the right side presumably hemorrhagic. 3. Mild pelvic free fluid. .Emmanuel Cleary MD, MD Date Time Electronically viewed and signed by .Emmanuel Cleary MD, on 08/11/2016 22:47 .M/
== END 2016-08-11 23:39 | disposition home or self-care (01) ==
LOC: FTE 20:37
DX: O20.0 Threatened abortion (principal); J45.909 Unspecified asthma, uncomplicated; R10.2 Pelvic and perineal pain; O99.511 Diseases of the respiratory system complicating pregnancy, first trimester; Z3A.01 Less than 8 weeks gestation of pregnancy
CPT/HCPCS: 36415; 76801; 76817; 81003; 84702; 85025; Z7502

== ENCOUNTER 2016-08-14 11:28 | Emergency (ER) | payer MEDICAID ==
[~2016-08-14] VITALS: Ht 167.6 cm; Wt 78.5 kg
[2016-08-14 11:46] VITALS: Ht 167.6 cm; Wt 78.5 kg
[2016-08-14] MEDS ORDERED: ACETAMINOPHEN 325 MG TAB PO STA (12:08)
[2016-08-14 12:48] LABS: ADD SCAN DIFF NO
[2016-08-14 12:51] LABS: BASOPHILS % 0.2 % (0.0-2.0); EOSINOPHILS # 0.2 10^3/ul (0.0-0.5); EOSINOPHILS % 2.9 % (0.0-7.0); HEMATOCRIT 40.7 % (37.0-47.0); LYMPHOCYTES # 2.1 10^3/ul (0.8-2.9); LYMPHOCYTES % 41.2 % (15.0-51.0); MEAN CORPUSCULAR HEMOGLOBIN 27.6 pg (29.0-33.0); MEAN CORPUSCULAR HGB CONC 31.9 g/dl (32.0-37.0); MEAN CORPUSCULAR VOLUME 86.4 fl (82.0-101.0); MONOCYTE # 0.5 10^3/ul (0.3-0.9); MONOCYTES % 8.7 % (0.0-11.0); NEUTROPHIL # 2.4 10^3/ul (1.6-7.5); NEUTROPHILS % 46.8 % (39.0-77.0); PLATELET COUNT 264 10^3/UL (140-415); RED BLOOD COUNT 4.71 10^6/ul (4.20-5.40); RED CELL DISTRIBUTION WIDTH 14.2 % (11.5-14.5); WHITE BLOOD COUNT 5.2 10^3/ul (4.8-10.8)
[2016-08-14 12:59] LABS: ADD UMIC YES; UR ASCORBIC ACID NEGATIVE (NEGATIVE); UR BILIRUBIN (Dip) NEGATIVE (NEGATIVE); UR BLOOD (Dip) 3+ mg/dL (NEGATIVE); UR CLARITY CLEAR (CLEAR); UR COLOR YELLOW (YELLOW); UR GLUCOSE (Dip) NEGATIVE (NEGATIVE); UR KETONES (Dip) NEGATIVE (NEGATIVE); UR LEUKOCYTE ESTERASE (Dip) NEGATIVE Leu/ul (NEGATIVE); UR NITRITE (Dip) NEGATIVE (NEGATIVE); UR RBC 10 /HPF (0-5); UR SPECIFIC GRAVITY (Dip) 1.015 (1.003-1.030); UR SQUAMOUS EPITHELIAL CELL FEW /HPF (FEW); UR TOTAL PROTEIN (Dip) NEGATIVE (NEGATIVE); UR UROBILINOGEN (Dip) NEGATIVE (NEGATIVE)
--- NOTE | 2016-08-14 14:02 | RADRPT ---
PROCEDURE: US OB. CLINICAL INDICATION: Vaginal bleeding. TECHNIQUE: Multiple transabdominal and transvaginal sonographic images of the pelvis were obtained. COMPARISON: 08/11/2016. FINDINGS: The uterus is anteflexed in position and measures 7.5 x 3.6 per 4.7 cm (66 cc). The endometrial com plex is homogeneous in echogenicity measuring approximately 7 mm in thickness. The tiny intrauterine gestational sac like structure seen on previous examination is no longer observed. There is no evid ence of intrauterine . The cervix is closed. There is no free pelvic fluid. The cervix is closed. There is no free pelvic fluid. The right ovary measures 3.5 x 2.4 x 3.1 cm (13.8 cc). The left ovary measures 4.1 x 2.6 x 3.4 cm ( 19 cc). The right complicated ovarian cyst measures 2.8 x 1.6 x 2.4 cm, previously 4.8 x 2.6 x 4.2 cm. The left simple ovarian cyst measures 3.6 x 1.9 x 2.6 cm, previously 5.1 x 3.9 x 4.8 cm. There is no evidence of adnexal mass. IMPRESSION: No evidence of intrauterine or adnexal mass. The tiny intrauterine gestational sac like s tructure seen on previous examination is no longer visualized. Continued correlation with serial qu antitative beta HCGs including follow-up pelvic ultrasound is recommended. Decrease in size of complicated right and simple left ovarian cysts. RPTAT: HLST .Mira Sanabria MD, Date Time Electronically viewed and signed by .Mira Sanabria MD, on 08/14/2016 14:01 .T/
[2016-08-14] MEDS ORDERED: ACET1TAB40 PO (14:08)
[2016-08-14] MEDS ORDERED: IBUP-1542 PO (14:08)
--- NOTE | 2016-08-14 14:14 | ERD ---
ER Documentation Chief Complaint Date/Time DATE: 08/14/16 TIME: 14:10 Chief Complaint Complains of vag bleed today HPI 18-year-old female presents with vaginal bleeding starting today. She is approximately 6 weeks by dates. She has had 2 visits over the last week. Examinations show initial quantitative hCG of 139 and then 140 for 3 days later. She had a small saclike structure intrauterine with ovarian cysts without obvious ectopic . She did not have bleeding before only pain. Today she presents with vaginal bleeding and low back pain and suprapubic cramping. She denies fevers, vomiting, shortness of the chest pain. She is a G2 para 0 per ROS All systems reviewed and are negative except as per history of present illness. Medications Home Meds Active Scripts Acetaminophen with Codeine (Acetaminophen-Cod #3 Tablet) 1 Each Tablet, 1 TAB PO Q6H Y for PAIN, #7 TAB Prov:DANIEL BERGER MD 08/14/16 Ibuprofen* (Motrin*) 600 Mg Tab, 600 MG PO Q6, #15 TAB Prov:DANIEL BERGER MD 08/14/16 Acetaminophen* (Tylenol*) 325 Mg Tablet, 1 TAB PO Q6 Y for PAIN AND OR ELEVATED TEMP, #20 TAB Prov:SUZIE SIMS PA-C 08/03/16 Albuterol Sulfate* (Albuterol Sulfate* Neb) 0.083%-3 Ml Neb, 2.5 MG NEB Q4 Y for SHORTNESS OF BREATH, #30 EA Prov:MITCHELL IGLESIAS PA-C 07/08/16 Prednisone* (Prednisone*) 20 Mg Tab, 40 MG PO DAILY for 4 Days, #8 TAB Prov:MITCHELL IGLESIAS PA-C 07/08/16 Albuterol Sulfate* (Ventolin HFA*) 18 Gm Hfa.aer.ad, 2 PUFF INHALATION Q4H, #1 INHALER Prov:RILEY PARIS NP 04/26/16 Allergies Allergies: Coded Allergies: No Known Allergy (Unverified , 08/11/16) PMhx/Soc History of Surgery: No (breast tumor) Anesthesia Reaction: No Hx Neurological Disorder: No Hx Respiratory Disorders: Yes (ASTHMA) Hx Cardiac Disorders: No Hx Psychiatric Problems: No Hx Miscellaneous Medical Probl: No Hx Alcohol Use: No Hx Substance Use: No Hx Tobacco Use: No Smoking Status: Never smoker Physical Exam Vitals Vital Signs Date Time Temp Pulse Resp B/P Pulse Ox O2 Delivery O2 Flow Rate FiO2 08/14/16 11:46 98.3 77 20 121/65 98 Physical Exam Const: [] Alert, not ill-appearing. Head: Atraumatic Eyes: Normal Conjunctiva ENT: Normal External Ears, Nose and Mouth. Neck: Full range of motion..~ No meningismus. Resp: Clear to auscultation bilaterally Cardio: Regular rate and rhythm, no murmurs Abd: Soft, minimal suprapubic tenderness. non distended. Normal bowel sounds Skin: No petechiae or rashes Back: No midline or flank tenderness Ext: No cyanosis, or edema Neur: Awake and alert Psych: Normal Mood and Affect Result Diagram: 08/14/16 1240 Results 24 hrs Laboratory Tests Test 08/14/16 12:40 White Blood Count 5.210^3/ul Red Blood Count 4.7110^6/ul Hemoglobin 13.0g/dl Hematocrit 40.7% Mean Corpuscular Volume 86.4fl Mean Corpuscular Hemoglobin 27.6pg Mean Corpuscular Hemoglobin Concent 31.9g/dl Red Cell Distribution Width 14.2% Platelet Count 01211^3/UL Mean Platelet Volume 9.0fl Neutrophils % 46.8% Lymphocytes % 41.2% Monocytes % 8.7% Eosinophils % 2.9% Basophils % 0.2% Nucleated Red Blood Cells % 0.0/100WBC Neutrophils # 2.410^3/ul Lymphocytes # 2.110^3/ul Monocytes # 0.510^3/ul Eosinophils # 0.210^3/ul Basophils # 0.010^3/ul Nucleated Red Blood Cells # 0.010^3/ul Urine Color YELLOW Urine Clarity CLEAR Urine pH 5.0 Urine Specific [place] 1.015 Urine Ketones NEGATIVEmg/dL Urine Nitrite NEGATIVEmg/dL Urine Bilirubin NEGATIVEmg/dL Urine Urobilinogen NEGATIVEmg/dL Urine Leukocyte Esterase NEGATIVELeu/ul Urine Microscopic RBC 10/HPF Urine Microscopic WBC 1/HPF Urine Squamous Epithelial Cells FEW/HPF Urine Hemoglobin 3+mg/dL Urine Glucose NEGATIVEmg/dL Urine Total Protein NEGATIVEmg/dl Beta HCG, Quantitative 124.4mIU/ml Current Medications Medications (Trade) Dose Ordered Sig/Kallie Route PRN Reason Start Time Stop Time Status Last Admin Dose Admin Acetaminophen (Tylenol Tab) 650 mg ONCE STAT PO 08/14/16 12:08 08/14/16 12:09 DC 08/14/16 13:14 Procedures/MDM Pelvic ultrasound shows no visible intrauterine . The previously seen sac is no longer visible. There are no adnexal masses appreciated. There is decrease in size of complicated right simple left ovarian cyst. Quantitative hCG today is 124. Patient is given Tylenol for pain. Patient presents with vaginal bleeding first trimester with decreasing hCGs and along no longer visible intrauterine saclike structure. I suspect she is having incomplete or complete . Current signs or symptoms do not suggest ectopic , septic , additional causes of abdominal pain such as appendicitis, acute abdomen. She will discharged home the course of ibuprofen and Tylenol 3 and additional recheck with OB this week. She should otherwise return for worsening pain, bleeding, fevers, new worsening symptoms or with primary care doctor as directed. Departure Diagnosis: Primary Impression: Vaginal bleeding in patient at less than 20 weeks ges... Condition: Stable Patient Instructions: Bleeding During Early , Miscarriage (Incomplete) Additional Instructions: No visible on ultrasound currently. Suspect miscarriage in progress. Recheck with OB this in 2 days or this week .return for worsening pain, fevers , bleeding, new worsening symptoms. DANIEL BERGER MD Aug 14, 2016 14:14
[2016-08-14 14:23] VITALS: BP 104/60; PULSE 64; RESP 18; TEMP 97.9
== END 2016-08-14 14:25 | disposition home or self-care (01) ==
LOC: FTE 11:28
DX: O20.9 Hemorrhage in early pregnancy, unspecified (principal); J45.909 Unspecified asthma, uncomplicated; O99.511 Diseases of the respiratory system complicating pregnancy, first trimester; Z3A.01 Less than 8 weeks gestation of pregnancy
CPT/HCPCS: 76801; 76817; 81001; 84702; 85025; Z7610; 36415

== ENCOUNTER 2016-10-04 20:37 | Emergency (ER) | payer MEDICAID ==
[~2016-10-04] VITALS: Ht 167.6 cm; Wt 75.0 kg
[~2016-10-04 20:37] MED LIST changes: +ACET1TAB40 PO; +IBUP-1542 PO
[2016-10-04 20:40] VITALS: Ht 167.6 cm; Wt 75.0 kg
[2016-10-04] MEDS ORDERED: SOD CHLORIDE 0.9% 1,000 ML IV STA (21:02)
--- NOTE | 2016-10-04 21:14 | ERD ---
ER Documentation Chief Complaint Date/Time DATE: 10/04/16 TIME: 21:09 Chief Complaint C/O AP X3 DAYS. STATES S/P MISCARRIAGE 1 MONTH AGO. DENIES BLEEDING HPI 26-year-old female presents here in emergency department for complaints of pelvic abdominal pain for 3 days. Patient describes the pain as throbbing, intermittent pain, 4/10 scale, not better or worse with anything. Patient denies any vaginal bleeding. Patient had a miscarriage at 4 weeks one month ago. Patient denies any hematuria or dysuria. Patient feels warm at times but never had been able to check temperature. Patient denies any sick contacts. Patient denies any diarrhea or constipation. ROS All systems reviewed and are negative except as per history of present illness. Medications Home Meds Active Scripts Acetaminophen with Codeine (Acetaminophen-Cod #3 Tablet) 1 Each Tablet, 1 TAB PO Q6H Y for PAIN, #7 TAB Prov:DANIEL BERGER MD 08/14/16 Ibuprofen* (Motrin*) 600 Mg Tab, 600 MG PO Q6, #15 TAB Prov:DANIEL BERGER MD 08/14/16 Acetaminophen* (Tylenol*) 325 Mg Tablet, 1 TAB PO Q6 Y for PAIN AND OR ELEVATED TEMP, #20 TAB Prov:SUZIE SIMS PA-C 08/03/16 Albuterol Sulfate* (Albuterol Sulfate* Neb) 0.083%-3 Ml Neb, 2.5 MG NEB Q4 Y for SHORTNESS OF BREATH, #30 EA Prov:MITCHELL IGLESIAS PA-C 07/08/16 Prednisone* (Prednisone*) 20 Mg Tab, 40 MG PO DAILY for 4 Days, #8 TAB Prov:MITCHELL IGLESIAS PA-C 07/08/16 Albuterol Sulfate* (Ventolin HFA*) 18 Gm Hfa.aer.ad, 2 PUFF INHALATION Q4H, #1 INHALER Prov:RILEY PARIS NP 04/26/16 Allergies Allergies: Coded Allergies: No Known Allergy (Unverified , 10/04/16) PMhx/Soc History of Surgery: No (breast tumor) Anesthesia Reaction: No Hx Neurological Disorder: No Hx Respiratory Disorders: Yes (ASTHMA) Hx Cardiac Disorders: No Hx Psychiatric Problems: No Hx Miscellaneous Medical Probl: Yes (miscarriage 07/2016) Hx Alcohol Use: No Hx Substance Use: No Hx Tobacco Use: No Smoking Status: Never smoker FmHx Family History: No coronary disease, No diabetes, No other Physical Exam Vitals Vital Signs Date Time Temp Pulse Resp B/P Pulse Ox O2 Delivery O2 Flow Rate FiO2 10/04/16 20:40 98.6 115 18 125/72 99 Physical Exam GENERAL: The patient is well developed and appropriate for usual state of health, in no apparent distress. CHEST: Clear to auscultation bilaterally. There are no rales, wheezes or rhonchi. HEART: Regular rate and rhythm. No murmurs, clicks, rubs or gallops. No S3 or S4. ABDOMEN: Soft, nontender and nondistended. Good bowel sounds. No rebound or guarding. No gross peritonitis. No gross organomegaly or masses. No Urban sign or McBurney point tenderness. BACK: No midline or flank tenderness. EXTREMITIES: Equal pulses bilaterally. There is no peripheral clubbing, cyanosis or edema. No focal swelling or erythema. Full range of motion. Grossly neurovascularly intact. NEURO: Alert and oriented. Cranial nerves 2-12 intact. Motor strength in all 4 extremities with 5/5 strength. Sensation grossly intact. Normal speech and gait. SKIN: There is no apparent rash or petechia. The skin is warm and dry. HEMATOLOGIC AND LYMPHATIC: There is no evidence of excessive bruising or lymphedema. No gross cervical, axillary, or inguinal lymphadenopathy. Result Diagram: 10/04/16211710/04/162117 Results 24 hrs Laboratory Tests Test 10/04/16 21:18 White Blood Count 8.010^3/ul Red Blood Count 5.0310^6/ul Hemoglobin 13.7g/dl Hematocrit 42.3% Mean Corpuscular Volume 84.1fl Mean Corpuscular Hemoglobin 27.2pg Mean Corpuscular Hemoglobin Concent 32.4g/dl Red Cell Distribution Width 13.1% Platelet Count 46018^3/UL Mean Platelet Volume 9.3fl Neutrophils % 44.6% Lymphocytes % 47.4% Monocytes % 6.1% Eosinophils % 1.4% Basophils % 0.4% Nucleated Red Blood Cells % 0.0/100WBC Neutrophils # (Manual) 3.610^3/ul Lymphocytes # 3.810^3/ul Monocytes # 0.510^3/ul Eosinophils # 0.110^3/ul Basophils # 0.010^3/ul Nucleated Red Blood Cells # 0.010^3/ul Urine Color YELLOW Urine Clarity CLEAR Urine pH 5.0 Urine Specific [place] 1.027 Urine Ketones 1+mg/dL Urine Nitrite NEGATIVEmg/dL Urine Bilirubin NEGATIVEmg/dL Urine Urobilinogen NEGATIVEmg/dL Urine Leukocyte Esterase NEGATIVELeu/ul Urine Microscopic RBC 2/HPF Urine Microscopic WBC 1/HPF Urine Mucus FEW/HPF Urine Hemoglobin 1+mg/dL Urine Glucose NEGATIVEmg/dL Urine Total Protein NEGATIVEmg/dl Sodium Level 144mmol/L Potassium Level 3.7mmol/L Chloride Level 102mmol/L Carbon Dioxide Level 24mmol/L Anion Gap 22 Blood Urea Nitrogen 12mg/dl Creatinine 0.86mg/dl Glucose Level 112mg/dl Calcium Level 9.9mg/dl Total Bilirubin 0.3mg/dl Direct Bilirubin 0.00mg/dl Indirect Bilirubin 0.3mg/dl Aspartate Amino Transf (AST/SGOT) 20IU/L Alanine Aminotransferase (ALT/SGPT) 23IU/L Alkaline Phosphatase 69IU/L Total Protein 8.7g/dl Albumin 4.6g/dl Globulin 4.10g/dl Albumin/Globulin Ratio 1.12 Lipase 126U/L Current Medications Medications (Trade) Dose Ordered Sig/Kallie Route PRN Reason Start Time Stop Time Status Last Admin Dose Admin Sodium Chloride (NS) 1,000 ml @ 1,000 mls/hr Q1H STAT IV 10/04/16 21:02 10/04/16 22:01 DC 10/04/16 21:18 Normal saline IV bolus was given here in emergency department for rehydration, patient tolerated IV fluids. PROCEDURE: Pelvic ultrasound. CLINICAL INDICATION: Pelvic pain. TECHNIQUE: Multiple sonographic images of the pelvis were obtained utilizing a transabdominal and endovaginal technique. The images were reviewed on a PACS workstation. COMPARISON: None. FINDINGS: The uterus is visualized and measures 7.6 x 2.5 x 5.6 cm. No abnormal uterine mass is identified. The endometrial echo complex is homogeneous and measures 1.3 mm. There is no evidence for free fluid. The right ovary has a normal echotexture and measures 4.2 x 2.8 x 3.4 cm. The left ovary has a normal echotexture and measures 3.0 x 1.7 x 2.0 cm. There is normal flow to both ovaries. There is a complex cyst within the right ovary measuring cm 1.4 x 0.8 cm. No adnexal masses are identified. IMPRESSION: Right ovarian 1.4 cm hemorrhagic cyst. Signed By: Bismark Horowitz M.D 10/04/2016 11:04:31 PM Procedures/MDM Medical Decision Making: Patient's pain most likely consistent with ovarian cyst. No retained products of conception noted. No suspicion for any abdominal emergencies, patient is not complaining of abdominal pain. No leukocytosis, no bandemia. No fever here in the emergency department. There is low suspicion for abdominal emergencies at this time. Patients abdominal exam is normal at this time. Patients radiology exam does not show any abdominal emergencies at this time. There is low suspicion for appendicitis, cholecystitis, abdominal aortic aneurysms or peritonitis at this time. There is low suspicion for sepsis. Patient appears well and is hemodynamically stable. Disposition: Home. Condition: Stable Prescription ibuprofen, tramadol Instructions: Patient is advised to take medications as prescribed. Patient is advised to rest, increase fluid intake and do a harvest contractor specialist for evaluation of her ovarian cyst. Patient is advised that if symptoms are worse, severe abdominal pain, uncontrolled vomiting, high fever, severe flank pain, worst signs and symptoms, to return to the emergency department immediately. Otherwise, patient can follow up with primary care doctor in 5-7 days. Departure Diagnosis: Primary Impression: Pelvic pain Additional Impression: Ovarian cyst Laterality: right Qualified Code: N83.201 - Cyst of right ovary Patient Instructions: Ovarian Cyst Additional Instructions: Patient is advised to take medications as prescribed. Patient is advised to rest, increase fluid intake and do a harvest contractor specialist for evaluation of her ovarian cyst. Patient is advised that if symptoms are worse, severe abdominal pain, uncontrolled vomiting, high fever, severe flank pain, worst signs and symptoms, to return to the emergency department immediately. Otherwise, patient can follow up with primary care doctor in 5-7 days. TESFAYE IQBAL NP Oct 04, 2016 21:14
[2016-10-04 21:41] LABS: BASOPHILS % 0.4 % (0.0-2.0); EOSINOPHILS # 0.1 10^3/ul (0.0-0.5); EOSINOPHILS % 1.4 % (0.0-7.0); HEMATOCRIT 42.3 % (37.0-47.0); HEMOGLOBIN 13.7 g/dl (12.0-16.0); LYMPHOCYTES # 3.8 10^3/ul (0.8-2.9); LYMPHOCYTES % 47.4 % (15.0-51.0); MEAN CORPUSCULAR HEMOGLOBIN 27.2 pg (29.0-33.0); MEAN CORPUSCULAR HGB CONC 32.4 g/dl (32.0-37.0); MEAN CORPUSCULAR VOLUME 84.1 fl (82.0-101.0); MEAN PLATELET VOLUME 9.3 fl (7.4-10.4); MONOCYTE # 0.5 10^3/ul (0.3-0.9); MONOCYTES % 6.1 % (0.0-11.0); NEUTROPHILS % 44.6 % (39.0-77.0); PLATELET COUNT 297 10^3/UL (140-415); RED BLOOD COUNT 5.03 10^6/ul (4.20-5.40); RED CELL DISTRIBUTION WIDTH 13.1 % (11.5-14.5)
[2016-10-04 21:49] LABS: ADD UMIC YES; UR ASCORBIC ACID NEGATIVE (NEGATIVE); UR BILIRUBIN (Dip) NEGATIVE (NEGATIVE); UR BLOOD (Dip) 1+ mg/dL (NEGATIVE); UR CLARITY CLEAR (CLEAR); UR COLOR YELLOW (YELLOW); UR GLUCOSE (Dip) NEGATIVE (NEGATIVE); UR KETONES (Dip) 1+ mg/dL (NEGATIVE); UR LEUKOCYTE ESTERASE (Dip) NEGATIVE Leu/ul (NEGATIVE); UR MUCUS FEW /HPF (NONE SEEN); UR NITRITE (Dip) NEGATIVE (NEGATIVE); UR RBC 2 /HPF (0-5); UR SPECIFIC GRAVITY (Dip) 1.027 (1.003-1.030); UR TOTAL PROTEIN (Dip) NEGATIVE (NEGATIVE); UR UROBILINOGEN (Dip) NEGATIVE (NEGATIVE)
[2016-10-04 22:03] LABS: ALBUMIN 4.6 g/dl (3.3-4.9); ALBUMIN/GLOBULIN RATIO 1.12; BILIRUBIN,INDIRECT 0.3 mg/dl (0-1.1); BILIRUBIN,TOTAL 0.3 mg/dl (0.2-1.3); CALCIUM 9.9 mg/dl (8.4-10.2); CREATININE 0.86 mg/dl (0.44-1.00); POTASSIUM 3.7 mmol/L (3.5-5.1); TOTAL PROTEIN 8.7 g/dl (6.1-8.1)
[2016-10-04] MEDS ORDERED: IBUP-1542 PO (23:09)
[2016-10-04] MEDS ORDERED: TRAM50TA2 PO (23:09)
[2016-10-04 23:23] VITALS: BP 107/67; PULSE 77; RESP 20; TEMP 98.6
--- NOTE | 2016-10-05 09:59 | RADRPT ---
PROCEDURE: Pelvic ultrasound. CLINICAL INDICATION: Pelvic pain. TECHNIQUE: Multiple sonographic images of the pelvis were obtained utilizing a transabdominal and endovaginal technique. The images were reviewed on a PACS workstation. COMPARISON: None. FINDINGS: The uterus is visualized and measures 7.6 x 2.5 x 5.6 cm. No abnormal uterine mass is identified. T he endometrial echo complex is homogeneous and measures 1.3 mm. There is no evidence for free fluid. The right ovary has a normal echotexture and measures 4.2 x 2. 8 x 3.4 cm. The left ovary has a normal echotexture and measures 3.0 x 1.7 x 2.0 cm. There is norm al flow to both ovaries. There is a complex cyst within the right ovary measuring cm 1.4 x 0.8 cm. No adnexal masses are identified. IMPRESSION: Right ovarian 1.4 cm hemorrhagic cyst. .Bismark Horowitz MD, Date Time Electronically viewed and signed by .Bismark Horowitz MD, MD on 10/04/2016 23:04 .T/
== END 2016-10-04 23:25 | disposition home or self-care (01) ==
LOC: FTE 20:37
DX: R10.2 Pelvic and perineal pain (principal); N83.201 Unspecified ovarian cyst, right side; J45.909 Unspecified asthma, uncomplicated
CPT/HCPCS: 36415; 76830; 76856; 80053; 81001; 83690; 85025; J7030; Z7502

== ENCOUNTER 2016-12-14 14:34 | Emergency (ER) | payer MEDICAID ==
[~2016-12-14] VITALS: Ht 157.5 cm; Wt 74.0 kg
[~2016-12-14 14:34] MED LIST changes: +TRAM50TA2 PO
[2016-12-14 14:45] VITALS: Ht 157.5 cm; Wt 74.0 kg
[2016-12-14] MEDS ORDERED: ONDANSETRON (ODT) 4 MG TAB ODT STA (16:23)
[2016-12-14] MEDS ORDERED: ALBUTEROL 0.083% (NEB) 2.5 MG/3 ML AMP NEB STA (16:23)
[2016-12-14] MEDS ORDERED: IPRATROPIUM (NEB) 0.5 MG/2.5 ML AMP NEB STA (16:23)
--- NOTE | 2016-12-14 16:23 | ERD ---
ER Documentation Chief Complaint Chief Complaint cold symptoms x 1 week HPI This 26-year-old female presents to emergency department with tactile fever and asthma symptoms x 5 days N/V/D started last night at 1999. pr reports N/V/D x 2 today, states that she is out of her albuterol. using x3 QD. ROS All systems reviewed and are negative except as per history of present illness. Medications Home Meds Active Scripts Tramadol HCl (Tramadol HCl) 50 Mg Tablet, 50 MG PO Q6 Y for SEVERE PAIN LEVEL 7- 10, #20 TAB Prov:TESFAYE IQBAL NP 10/04/16 Ibuprofen* (Motrin*) 600 Mg Tab, 600 MG PO Q6H Y for PAIN AND OR ELEVATED TEMP, #30 TAB Prov:TESFAYE IQBAL NP 10/04/16 Acetaminophen with Codeine (Acetaminophen-Cod #3 Tablet) 1 Each Tablet, 1 TAB PO Q6H Y for PAIN, #7 TAB Prov:DANIEL BERGER MD 08/14/16 Ibuprofen* (Motrin*) 600 Mg Tab, 600 MG PO Q6, #15 TAB Prov:DANIEL BERGER MD 08/14/16 Acetaminophen* (Tylenol*) 325 Mg Tablet, 1 TAB PO Q6 Y for PAIN AND OR ELEVATED TEMP, #20 TAB Prov:SUZIE SIMS PA-C 08/03/16 Albuterol Sulfate* (Albuterol Sulfate* Neb) 0.083%-3 Ml Neb, 2.5 MG NEB Q4 Y for SHORTNESS OF BREATH, #30 EA Prov:MITCHELL IGLESIAS PA-C 07/08/16 Prednisone* (Prednisone*) 20 Mg Tab, 40 MG PO DAILY for 4 Days, #8 TAB Prov:MITCHELL IGLESIAS PA-C 07/08/16 Albuterol Sulfate* (Ventolin HFA*) 18 Gm Hfa.aer.ad, 2 PUFF INHALATION Q4H, #1 INHALER Prov:RILEY PARIS NP 04/26/16 Allergies Allergies: Coded Allergies: No Known Allergy (Unverified , 10/04/16) PMhx/Soc History of Surgery: No (breast tumor) Anesthesia Reaction: No Hx Neurological Disorder: No Hx Respiratory Disorders: Yes (ASTHMA) Hx Cardiac Disorders: No Hx Psychiatric Problems: No Hx Miscellaneous Medical Probl: Yes (miscarriage 07/2016) Hx Alcohol Use: No Hx Substance Use: No Hx Tobacco Use: No Physical Exam Vitals Vital Signs Date Time Temp Pulse Resp B/P Pulse Ox O2 Delivery O2 Flow Rate FiO2 12/14/16 16:46 92 18 98 21 12/14/16 14:45 98.2 92 18 113/65 98 Vitals stable, triage notes reviewed Physical Exam Const: Well-nourished, well-appearing, well-hydrated, no acute distress Head: Eyes: Normal Conjunctiva, PERRLA, EOMI ENT: Tympanic membranes translucent, nasal mucosa moist, edematous, pharynx pink, uvula midline rises and falls with pronation. No shift, no exudate on tonsillar pillars. Neck: Full range of motion..~ No meningismus. No cervical chain Resp: Wheezing with forced expiration Cardio: Regular rate and rhythm, no murmurs Abd: Soft, non tender, non distended. Negative McBurney's point tenderness, negative CVA tenderness Skin: No petechiae or rashes Back: Right lumbar back pain Ext: Neur: Awake and alert Psych: Normal Mood and Affect Results 24 hrs Laboratory Tests Test 12/14/16 18:07 Bedside Urine pH (LAB) 7.0 Bedside Urine Protein (LAB) Negative Bedside Urine Glucose (UA) Negative Bedside Urine Ketones (LAB) 1+ Bedside Urine Blood Negative Bedside Urine Nitrite (LAB) Negative Bedside Urine Leukocyte Esterase (L Negative Current Medications Medications (Trade) Dose Ordered Sig/Kallie Route PRN Reason Start Time Stop Time Status Last Admin Dose Admin Albuterol (Proventil 0.083% (Neb)) 5 mg ONCE STAT NEB 12/14/16 16:23 12/14/16 16:26 DC 12/14/16 16:44 Ipratropium [place] (Atrovent 0.02% (Neb)) 0.5 mg ONCE STAT NEB 12/14/16 16:23 12/14/16 16:26 DC 12/14/16 16:45 Ondansetron HCl (Zofran Odt) 4 mg ONCE STAT ODT 12/14/16 16:23 12/14/16 16:26 DC 12/14/16 16:37 Procedures/MDM This 26-year-old female presents to emergency department for evaluation of cold symptoms 5 days, patient reports she is an asthmatic, has used her inhaler 3 times a day for the last 5 days and is out of her MDI, patient also reports that she started to have nausea, vomiting, diarrhea last night at 10 PM, it lasted through the morning and part of today, patient reports 2 diarrhea stools today, vomiting twice today, able to eat and drink without deficit today, patient is well-appearing in no acute distress, emergency room course includes urinalysis, urine test, Zofran, and albuterol, Atrovent, hand-held nebulized treatment. Urinalysis negative for leukocytosis, or nitrates, patient 's urine is positive. She reports that her last menstrual period was 2 weeks ago, reported normal. Patient instructed to follow-up with [facility] for full evaluation, will be prescribed Tylenol, Zofran, and instructed not to take ibuprofen or any other [id number] medications until cleared by [facility]. Albuterol MDI will be refilled. Patient is stable with no new complaints during ER course, clinically there is no current evidence to suggest meningitis , sepsis, acute abdomen, acute coronary syndromes, pulmonary embolism or any other emergent condition appearing to require further evaluation or hospitalization. I feel the patient is stable for discharge at this time. I have discussed results, examination findings, the treatment plan with the patient and family present prior to discharge. Indications for emergent reevaluation, side effects of medication were also discussed. All questions were answered. Patient verbalizes understanding and agrees with plan of care. Departure Diagnosis: Primary Impression: Common cold Additional Impression: Weeks of gestation: unspecified Qualified Code: Z34.90 - , unspecified gestational age Condition: Good Patient Instructions: Adapting to : First Trimester, Adult Self-Care for Colds Referrals: [facility] REFERRAL LIST Additional Instructions: Thank you for for coming to [facility] for your care today. Please ask your nurse or provider if you have questions about your care today and do not leave until all your questions have been answered. Please use any medications given as directed and follow-up with your doctor (or the doctor you were referred to) in the next 2-3 days. If you do not have a primary care doctor you may follow up at the [facility] (listed below). You may also use motrin and tylenol as needed for fever and/or pain unless instructed otherwise by your provider or nurse. Indications for more urgent follow-up have been discussed, but you may return to the Emergency Department at ANY time for any worrisome or worsening symptoms. If you have abdominal pain, please know that no test or exam you received is perfect and you should follow up within 8 hours for continued pain. If you had any imaging studies today, such as an X-Ray or CT Scan, these studies will be reviewed later by a radiologist. You will be called if there are important findings that were not identified today, so make sure the contact information you provided at registration is correct. If you received any narcotic pain control medicine today, such as Vicodin, Morphine or Dilaudid, your coordination and judgment may be affected for a number of hours. Please do not drive or operate heavy machinery, and you may want someone to assist you at home. If you were given a prescription for narcotic medication, be aware that it is very addictive- use sparingly and only if necessary. ESTHER BOONE Dec 14, 2016 16:23
[2016-12-14 18:05] LABS: URINE BLOOD (Dip) POC Negative (NEGATIVE)
[2016-12-14] MEDS ORDERED: ONDA4TAB14 PO (18:18)
[2016-12-14] MEDS ORDERED: ACET500C5 PO (18:18)
== END 2016-12-14 18:41 | disposition home or self-care (01) ==
LOC: FTE 14:34
DX: J00 Acute nasopharyngitis [common cold] (principal); J45.909 Unspecified asthma, uncomplicated; R05 Cough
CPT/HCPCS: 81003; 94664; Z7502; Z7610

== ENCOUNTER 2016-12-23 20:28 | Emergency (ER) | payer MEDICAID ==
[~2016-12-23] VITALS: Ht 167.6 cm; Wt 72.0 kg
[~2016-12-23 20:28] MED LIST changes: +ACET500C5 PO; +ONDA4TAB14 PO
[2016-12-23 20:34] VITALS: Ht 167.6 cm; Wt 72.0 kg
[2016-12-23] MEDS ORDERED: ACETAMINOPHEN 325 MG TAB PO STA (21:51)
[2016-12-23] MEDS ORDERED: ONDANSETRON 4 MG INJ IV STA (21:51)
[2016-12-23] MEDS ORDERED: SOD CHLORIDE 0.9% 1,000 ML IV STA (21:51)
--- NOTE | 2016-12-23 23:07 | ERD ---
ER Documentation Chief Complaint Chief Complaint vaginal bleeding/abd pain x 1 day HPI This 26-year-old female presents to emergency department for evaluation of vaginal bleeding and abdominal pain since yesterday. Patient reports bleeding is only when she is on the toilet, observed on toilet paper, patient reports vomiting, reports she is able to eat, hold liquids down, denies dysuria. ROS All systems reviewed and are negative except as per history of present illness. Medications Home Meds Active Scripts Ondansetron (Ondansetron Odt) 4 Mg Tab.rapdis, 4 MG PO Q6H Y for NAUSEA AND/OR VOMITING, #10 TAB Prov:PAOLO,ESTHER 12/14/16 Acetaminophen* (Tylophen*) 500 Mg Capsule, 1 CAP PO Q6H Y for PAIN AND OR ELEVATED TEMP, #20 CAP Prov:PAOLO,ESTHER 12/14/16 Tramadol HCl (Tramadol HCl) 50 Mg Tablet, 50 MG PO Q6 Y for SEVERE PAIN LEVEL 7- 10, #20 TAB Prov:TESFYAE IQBAL NP 10/04/16 Ibuprofen* (Motrin*) 600 Mg Tab, 600 MG PO Q6H Y for PAIN AND OR ELEVATED TEMP, #30 TAB Prov:TESFAYE IQBAL NP 10/04/16 Acetaminophen with Codeine (Acetaminophen-Cod #3 Tablet) 1 Each Tablet, 1 TAB PO Q6H Y for PAIN, #7 TAB Prov:DANIEL BERGER MD 08/14/16 Ibuprofen* (Motrin*) 600 Mg Tab, 600 MG PO Q6, #15 TAB Prov:DANIEL BERGER MD 08/14/16 Acetaminophen* (Tylenol*) 325 Mg Tablet, 1 TAB PO Q6 Y for PAIN AND OR ELEVATED TEMP, #20 TAB Prov:SUZIE SIMS PA-C 08/03/16 Albuterol Sulfate* (Albuterol Sulfate* Neb) 0.083%-3 Ml Neb, 2.5 MG NEB Q4 Y for SHORTNESS OF BREATH, #30 EA Prov:MITCHELL IGLESIAS PA-C 07/08/16 Prednisone* (Prednisone*) 20 Mg Tab, 40 MG PO DAILY for 4 Days, #8 TAB Prov:MITCHELL IGLESIAS PA-C 07/08/16 Albuterol Sulfate* (Ventolin HFA*) 18 Gm Hfa.aer.ad, 2 PUFF INHALATION Q4H, #1 INHALER Prov:RILEY PARIS NP 04/26/16 Allergies Allergies: Coded Allergies: No Known Allergy (Unverified , 12/23/16) PMhx/Soc History of Surgery: No (breast tumor) Anesthesia Reaction: No Hx Neurological Disorder: No Hx Respiratory Disorders: Yes (ASTHMA) Hx Cardiac Disorders: No Hx Psychiatric Problems: No Hx Miscellaneous Medical Probl: Yes (miscarriage 07/2016) Hx Alcohol Use: No Hx Substance Use: No Hx Tobacco Use: No Physical Exam Vitals Vital Signs Date Time Temp Pulse Resp B/P Pulse Ox O2 Delivery O2 Flow Rate FiO2 12/23/16 20:34 98.2 94 20 138/57 99 Vitals stable, triage notes reviewed Physical Exam Const: Well-nourished, well-hydrated, well-appearing 26-year-old female no acute distress Head: Eyes: ENT: Normal External Ears, Nose and Mouth. Neck: Resp: Respirations even and unlabored no respiratory distress Cardio: Abd: Soft, pelvic tenderness non distended. CVA tenderness Skin: Back: No midline or flank tenderness Ext: Neur: Awake and alert Psych: Normal Mood and Affect Result Diagram: 12/23/162217 Results 24 hrs Laboratory Tests Test 12/23/16 22:10 12/23/16 22:18 Urine Color YELLOW Urine Clarity CLEAR Urine pH 5.0 Urine Specific [place] 1.030 Urine Ketones 1+mg/dL Urine Nitrite NEGATIVEmg/dL Urine Bilirubin NEGATIVEmg/dL Urine Urobilinogen 1+mg/dL Urine Leukocyte Esterase NEGATIVELeu/ul Urine Microscopic RBC 1/HPF Urine Microscopic WBC 2/HPF Urine Squamous Epithelial Cells FEW/HPF Urine Mucus MANY/HPF Urine Hemoglobin NEGATIVEmg/dL Urine Glucose NEGATIVEmg/dL Urine Total Protein 1+mg/dl White Blood Count 7.310^3/ul Red Blood Count 5.0710^6/ul Hemoglobin 13.6g/dl Hematocrit 42.4% Mean Corpuscular Volume 83.6fl Mean Corpuscular Hemoglobin 26.8pg Mean Corpuscular Hemoglobin Concent 32.1g/dl Red Cell Distribution Width 14.6% Platelet Count 57987^3/UL Mean Platelet Volume 9.3fl Neutrophils % 60.6% Lymphocytes % 31.8% Monocytes % 6.7% Eosinophils % 0.7% Basophils % 0.1% Nucleated Red Blood Cells % 0.0/100WBC Neutrophils # 4.410^3/ul Lymphocytes # 2.310^3/ul Monocytes # 0.510^3/ul Eosinophils # 0.110^3/ul Basophils # 0.010^3/ul Nucleated Red Blood Cells # 0.010^3/ul Beta HCG, Quantitative 027182.0mIU/ml Current Medications Medications (Trade) Dose Ordered Sig/Kallie Route PRN Reason Start Time Stop Time Status Last Admin Dose Admin Sodium Chloride (NS) 1,000 ml @ 1,000 mls/hr Q1H STAT IV 12/23/16 21:51 12/23/16 22:50 DC 12/23/16 21:51 Acetaminophen (Tylenol Tab) 650 mg ONCE STAT PO 12/23/16 21:51 12/23/16 21:53 DC 12/23/16 21:51 Ondansetron HCl (Zofran Inj) 4 mg ONCE STAT IV 12/23/16 21:51 12/23/16 21:53 DC 12/23/16 21:51 Interpretation text CBC shows no evidence of hemorrhage or infection Urinalysis negative for evidence of infection, no leukocytosis, nitrates, beta hCG quantitative 246726.0mIU/m Procedures/MDM PROCEDURE: Obstetrical ultrasound. CLINICAL INDICATION: Pelvic pain. TECHNIQUE: Multiple sonographic images of the pelvis were obtained with transabdominal technique. Images were obtained with fonseca scale and color Doppler. COMPARISON: No prior studies are available for comparison. FINDINGS: No abnormal uterine mass is identified. There are two intrauterine gestational sacs with poles identified (dichorionic-diamniotic gestation). No subchorionic collection is identified. The fetus A crown-rump length averages 1.06 cm, compatible with 7 weeks and 1 day. The mean sac diameter measures 2.86 cm, compatible with 8 weeks and 0 days. heart tones of 148 beats per minute are identified. A yolk sac is identified. The fetus B crown-rump length averages 1.08 cm, compatible with 7 weeks and 1 day. The mean sac diameter measures 2.41 cm, compatible with 7 weeks and 3 days. heart tones of 144 beats per minute are identified. There is no pelvic free fluid. The right ovary measures 3.5 x 1.5 x 1.9 cm and the left ovary measures 4.6 x 2.8 x 2.6 cm. There is normal flow to both ovaries. There is no suspicious adnexal mass identified. A yolk sac is identified. IMPRESSION: Twin living intrauterine gestations. Fetus A measures 7 weeks 4 days and fetus B measures 7 weeks 2 days. .Bismark Horowitz MD, MD Date Time Electronically viewed and signed by .Bismark Horowitz MD, on 12/23/2016 23:15 This 26-year-old female presents to emergency department for evaluation of first trimester vaginal bleeding, patient was seen in November here in emergency department for unrelated condition test was done positive for at that time. Patient reports that she has a LIGHT EQUIPMENT OPERATOR appointment scheduled for January 08. Patient reports bleeding is on toilet paper only, low pelvic cramping. With nausea and vomiting. Patient reports that the vomiting has been severe, but she is able to eat and drink. Emergency room course includes history and physical exam, diagnostic serology, no evidence of infection or hemorrhage. Beta hCG elevated appropriately indicating . Urinalysis negative for any evidence of infection. Normal saline, pain control with Tylenol, and Zofran for nausea. Patient reassessed after interventions completed reports improvement of symptoms. A OB ultrasound obtained, radiologist interpretation; twin living intrauterine gestation with fetus a measures 7 weeks 4 days and fetus B measures 7 weeks 2 days. To discharge patient home with Zofran, Tylenol, instruction instruction keep appointment with real estate branch manager, return to emergency department for any change in symptoms, vaginal bleeding, worsening of pain. Patient is stable with no new complaints during ER course, clinically there is no current evidence to suggest threatened miscarriage ovarian torsion urinary tract infection, acute abdomen or any other emergent condition appearing to require further evaluation or hospitalization. I feel the patient is stable for discharge at this time. I have discussed results, examination findings, the treatment plan with the patient and family present prior to discharge. Indications for emergent reevaluation, side effects of medication were also discussed. All questions were answered. Patient verbalizes understanding and agrees with plan of care. Departure Diagnosis: Primary Impression: Vaginal bleeding in patient at less than 20 weeks gestation Additional Impression: Twins, 1st trimester screening Condition: Good Referrals: LIGHT EQUIPMENT OPERATOR REFERRAL LIST Additional Instructions: Thank you for for coming to [facility] for your care today. Please ask your nurse or provider if you have questions about your care today and do not leave until all your questions have been answered. Please use any medications given as directed and follow-up with your doctor (or the doctor you were referred to) in the next 2-3 days. If you do not have a primary care doctor you may follow up at the [facility] (listed below). You may also use motrin and tylenol as needed for fever and/or pain unless instructed otherwise by your provider or nurse. Indications for more urgent follow-up have been discussed, but you may return to the Emergency Department at ANY time for any worrisome or worsening symptoms. If you have abdominal pain, please know that no test or exam you received is perfect and you should follow up within 8 hours for continued pain. If you had any imaging studies today, such as an X-Ray or CT Scan, these studies will be reviewed later by a radiologist. You will be called if there are important findings that were not identified today, so make sure the contact information you provided at registration is correct. If you received any narcotic pain control medicine today, such as Vicodin, Morphine or Dilaudid, your coordination and judgment may be affected for a number of hours. Please do not drive or operate heavy machinery, and you may want someone to assist you at home. If you were given a prescription for narcotic medication, be aware that it is very addictive- use sparingly and only if necessary. ESTHER BOONE Dec 23, 2016 23:07
--- NOTE | 2016-12-23 23:07 | ERD ---
ER Documentation Chief Complaint Chief Complaint vaginal bleeding/abd pain x 1 day HPI This 26-year-old female presents to emergency department for evaluation of vaginal bleeding and abdominal pain since yesterday. Patient reports bleeding is only when she is on the toilet, observed on toilet paper, patient reports vomiting, reports she is able to eat, hold liquids down, denies dysuria. ROS All systems reviewed and are negative except as per history of present illness. Medications Home Meds Active Scripts Ondansetron (Ondansetron Odt) 4 Mg Tab.rapdis, 4 MG PO Q6H Y for NAUSEA AND/OR VOMITING, #10 TAB Prov:PAOLO,ESTHER 12/14/16 Acetaminophen* (Tylophen*) 500 Mg Capsule, 1 CAP PO Q6H Y for PAIN AND OR ELEVATED TEMP, #20 CAP Prov:PAOLO,ESTHER 12/14/16 Tramadol HCl (Tramadol HCl) 50 Mg Tablet, 50 MG PO Q6 Y for SEVERE PAIN LEVEL 7- 10, #20 TAB Prov:TESFAYE IQBAL NP 10/04/16 Ibuprofen* (Motrin*) 600 Mg Tab, 600 MG PO Q6H Y for PAIN AND OR ELEVATED TEMP, #30 TAB Prov:TESFAYE IQBAL NP 10/04/16 Acetaminophen with Codeine (Acetaminophen-Cod #3 Tablet) 1 Each Tablet, 1 TAB PO Q6H Y for PAIN, #7 TAB Prov:DANIEL BERGER MD 08/14/16 Ibuprofen* (Motrin*) 600 Mg Tab, 600 MG PO Q6, #15 TAB Prov:DANIEL BERGER MD 08/14/16 Acetaminophen* (Tylenol*) 325 Mg Tablet, 1 TAB PO Q6 Y for PAIN AND OR ELEVATED TEMP, #20 TAB Prov:SUZIE SIMS PA-C 08/03/16 Albuterol Sulfate* (Albuterol Sulfate* Neb) 0.083%-3 Ml Neb, 2.5 MG NEB Q4 Y for SHORTNESS OF BREATH, #30 EA Prov:MITCHELL IGLESIAS PA-C 07/08/16 Prednisone* (Prednisone*) 20 Mg Tab, 40 MG PO DAILY for 4 Days, #8 TAB Prov:MITCHELL IGLESIAS PA-C 07/08/16 Albuterol Sulfate* (Ventolin HFA*) 18 Gm Hfa.aer.ad, 2 PUFF INHALATION Q4H, #1 INHALER Prov:RILEY PARIS NP 04/26/16 Allergies Allergies: Coded Allergies: No Known Allergy (Unverified , 12/23/16) PMhx/Soc History of Surgery: No (breast tumor) Anesthesia Reaction: No Hx Neurological Disorder: No Hx Respiratory Disorders: Yes (ASTHMA) Hx Cardiac Disorders: No Hx Psychiatric Problems: No Hx Miscellaneous Medical Probl: Yes (miscarriage 07/2016) Hx Alcohol Use: No Hx Substance Use: No Hx Tobacco Use: No Physical Exam Vitals Vital Signs Date Time Temp Pulse Resp B/P Pulse Ox O2 Delivery O2 Flow Rate FiO2 12/23/16 20:34 98.2 94 20 138/57 99 Vitals stable, triage notes reviewed Physical Exam Const: Well-nourished, well-hydrated, well-appearing 26-year-old female no acute distress Head: Eyes: ENT: Normal External Ears, Nose and Mouth. Neck: Resp: Respirations even and unlabored no respiratory distress Cardio: Abd: Soft, pelvic tenderness non distended. CVA tenderness Skin: Back: No midline or flank tenderness Ext: Neur: Awake and alert Psych: Normal Mood and Affect Result Diagram: 12/23/162217 Results 24 hrs Laboratory Tests Test 12/23/16 22:10 12/23/16 22:18 Urine Color YELLOW Urine Clarity CLEAR Urine pH 5.0 Urine Specific [place] 1.030 Urine Ketones 1+mg/dL Urine Nitrite NEGATIVEmg/dL Urine Bilirubin NEGATIVEmg/dL Urine Urobilinogen 1+mg/dL Urine Leukocyte Esterase NEGATIVELeu/ul Urine Microscopic RBC 1/HPF Urine Microscopic WBC 2/HPF Urine Squamous Epithelial Cells FEW/HPF Urine Mucus MANY/HPF Urine Hemoglobin NEGATIVEmg/dL Urine Glucose NEGATIVEmg/dL Urine Total Protein 1+mg/dl White Blood Count 7.310^3/ul Red Blood Count 5.0710^6/ul Hemoglobin 13.6g/dl Hematocrit 42.4% Mean Corpuscular Volume 83.6fl Mean Corpuscular Hemoglobin 26.8pg Mean Corpuscular Hemoglobin Concent 32.1g/dl Red Cell Distribution Width 14.6% Platelet Count 20015^3/UL Mean Platelet Volume 9.3fl Neutrophils % 60.6% Lymphocytes % 31.8% Monocytes % 6.7% Eosinophils % 0.7% Basophils % 0.1% Nucleated Red Blood Cells % 0.0/100WBC Neutrophils # 4.410^3/ul Lymphocytes # 2.310^3/ul Monocytes # 0.510^3/ul Eosinophils # 0.110^3/ul Basophils # 0.010^3/ul Nucleated Red Blood Cells # 0.010^3/ul Beta HCG, Quantitative 155442.0mIU/ml Current Medications Medications (Trade) Dose Ordered Sig/Kallie Route PRN Reason Start Time Stop Time Status Last Admin Dose Admin Sodium Chloride (NS) 1,000 ml @ 1,000 mls/hr Q1H STAT IV 12/23/16 21:51 12/23/16 22:50 DC 12/23/16 21:51 Acetaminophen (Tylenol Tab) 650 mg ONCE STAT PO 12/23/16 21:51 12/23/16 21:53 DC 12/23/16 21:51 Ondansetron HCl (Zofran Inj) 4 mg ONCE STAT IV 12/23/16 21:51 12/23/16 21:53 DC 12/23/16 21:51 Interpretation text CBC shows no evidence of hemorrhage or infection Urinalysis negative for evidence of infection, no leukocytosis, nitrates, beta hCG quantitative 824409.0mIU/m Procedures/MDM PROCEDURE: Obstetrical ultrasound. CLINICAL INDICATION: Pelvic pain. TECHNIQUE: Multiple sonographic images of the pelvis were obtained with transabdominal technique. Images were obtained with fonseca scale and color Doppler. COMPARISON: No prior studies are available for comparison. FINDINGS: No abnormal uterine mass is identified. There are two intrauterine gestational sacs with poles identified (dichorionic-diamniotic gestation). No subchorionic collection is identified. The fetus A crown-rump length averages 1.06 cm, compatible with 7 weeks and 1 day. The mean sac diameter measures 2.86 cm, compatible with 8 weeks and 0 days. heart tones of 148 beats per minute are identified. A yolk sac is identified. The fetus B crown-rump length averages 1.08 cm, compatible with 7 weeks and 1 day. The mean sac diameter measures 2.41 cm, compatible with 7 weeks and 3 days. heart tones of 144 beats per minute are identified. There is no pelvic free fluid. The right ovary measures 3.5 x 1.5 x 1.9 cm and the left ovary measures 4.6 x 2.8 x 2.6 cm. There is normal flow to both ovaries. There is no suspicious adnexal mass identified. A yolk sac is identified. IMPRESSION: Twin living intrauterine gestations. Fetus A measures 7 weeks 4 days and fetus B measures 7 weeks 2 days. .Bismark Horowitz MD, MD Date Time Electronically viewed and signed by .Bismark Horowitz MD, on 12/23/2016 23:15 This 26-year-old female presents to emergency department for evaluation of first trimester vaginal bleeding, patient was seen in November here in emergency department for unrelated condition test was done positive for at that time. Patient reports that she has a DIRECTOR BUSINESS MANAGEMENT appointment scheduled for January 08. Patient reports bleeding is on toilet paper only, low pelvic cramping. With nausea and vomiting. Patient reports that the vomiting has been severe, but she is able to eat and drink. Emergency room course includes history and physical exam, diagnostic serology, no evidence of infection or hemorrhage. Beta hCG elevated appropriately indicating . Urinalysis negative for any evidence of infection. Normal saline, pain control with Tylenol, and Zofran for nausea. Patient reassessed after interventions completed reports improvement of symptoms. A OB ultrasound obtained, radiologist interpretation; twin living intrauterine gestation with fetus a measures 7 weeks 4 days and fetus B measures 7 weeks 2 days. To discharge patient home with Zofran, Tylenol, instruction instruction keep appointment with die polisher, return to emergency department for any change in symptoms, vaginal bleeding, worsening of pain. Patient is stable with no new complaints during ER course, clinically there is no current evidence to suggest threatened miscarriage ovarian torsion urinary tract infection, acute abdomen or any other emergent condition appearing to require further evaluation or hospitalization. I feel the patient is stable for discharge at this time. I have discussed results, examination findings, the treatment plan with the patient and family present prior to discharge. Indications for emergent reevaluation, side effects of medication were also discussed. All questions were answered. Patient verbalizes understanding and agrees with plan of care. Departure Diagnosis: Primary Impression: Vaginal bleeding in patient at less than 20 weeks gestation Additional Impression: Twins, 1st trimester screening Condition: Good Referrals: DIRECTOR BUSINESS MANAGEMENT REFERRAL LIST Additional Instructions: Thank you for for coming to [facility] for your care today. Please ask your nurse or provider if you have questions about your care today and do not leave until all your questions have been answered. Please use any medications given as directed and follow-up with your doctor (or the doctor you were referred to) in the next 2-3 days. If you do not have a primary care doctor you may follow up at the [facility] (listed below). You may also use motrin and tylenol as needed for fever and/or pain unless instructed otherwise by your provider or nurse. Indications for more urgent follow-up have been discussed, but you may return to the Emergency Department at ANY time for any worrisome or worsening symptoms. If you have abdominal pain, please know that no test or exam you received is perfect and you should follow up within 8 hours for continued pain. If you had any imaging studies today, such as an X-Ray or CT Scan, these studies will be reviewed later by a radiologist. You will be called if there are important findings that were not identified today, so make sure the contact information you provided at registration is correct. If you received any narcotic pain control medicine today, such as Vicodin, Morphine or Dilaudid, your coordination and judgment may be affected for a number of hours. Please do not drive or operate heavy machinery, and you may want someone to assist you at home. If you were given a prescription for narcotic medication, be aware that it is very addictive- use sparingly and only if necessary. ESTHER BOONE Dec 23, 2016 23:07
--- NOTE | 2016-12-23 23:15 | RADRPT ---
PROCEDURE: Obstetrical ultrasound. CLINICAL INDICATION: Pelvic pain. TECHNIQUE: Multiple sonographic images of the pelvis were obtained with transabdominal technique. Images were obtained with fonseca scale and color Doppler. COMPARISON: No prior studies are available for comparison. FINDINGS: No abnormal uterine mass is identified. There are two intrauterine gestational sacs with pole s identified (dichorionic-diamniotic gestation). No subchorionic collection is identified. The fetus A crown-rump length averages 1.06 cm, compatible with 7 weeks and 1 day. The mean sac di ameter measures 2.86 cm, compatible with 8 weeks and 0 days. heart tones of 148 beats per honorio te are identified. A yolk sac is identified. The fetus B crown-rump length averages 1.08 cm, compatible with 7 weeks and 1 day. The mean sac di ameter measures 2.41 cm, compatible with 7 weeks and 3 days. heart tones of 144 beats per honorio te are identified. There is no pelvic free fluid. The right ovary measures 3.5 x 1.5 x 1.9 cm and the left ovary measu res 4.6 x 2.8 x 2.6 cm. There is normal flow to both ovaries. There is no suspicious adnexal mass identified. A yolk sac is identified. IMPRESSION: Twin living intrauterine gestations. Fetus A measures 7 weeks 4 days and fetus B measures 7 weeks 2 days. .Bismark Horowitz MD, MD Date Time Electronically viewed and signed by .Bismark Horowitz MD, MD on 12/23/2016 23:15 .T/
[2016-12-24] MEDS ORDERED: ACET500C5 PO (00:28)
[2016-12-24] MEDS ORDERED: PREN-17 PO (00:28)
[2016-12-24] MEDS ORDERED: ONDA4TAB8 PO (00:29)
== END 2016-12-24 01:14 | disposition home or self-care (01) ==
LOC: FTE 20:28
DX: O20.9 Hemorrhage in early pregnancy, unspecified (principal); R10.2 Pelvic and perineal pain; Z3A.08 8 weeks gestation of pregnancy
CPT/HCPCS: 36415; 76801; 81001; 84702; 85025; 96374; J2405; J7030; Z7502; Z7610

== ENCOUNTER 2017-01-19 00:04 | Emergency (ER) | payer MEDICAID ==
[~2017-01-19] VITALS: Ht 172.7 cm; Wt 73.2 kg
[~2017-01-19 00:04] MED LIST changes: +ONDA4TAB8 PO; +PREN-17 PO
[2017-01-19 00:08] VITALS: Ht 172.7 cm; Wt 73.2 kg
[2017-01-19] MEDS ORDERED: ACETAMINOPHEN 325 MG TAB PO STA (00:57)
--- NOTE | 2017-01-19 00:57 | ERD ---
ER Documentation Chief Complaint Chief Complaint 12 weeks , vag bleeding w/ pelvic pain since 1 hour ago HPI 1 miscarriage , reports that she is 12 week and vaginal bleeding bleeding for 1 hour with pain is sharp radiating from pelvis to back . Patient is a very poor historian, chart review reveals that patient has been seen by nurse practitioner when she was diagnosed with twins. ROS All systems reviewed and are negative except as per history of present illness. Medications Home Meds Active Scripts Ondansetron Hcl* (Zofran*) 4 Mg Tablet, 4 MG PO Q6H for NAUSEA AND/OR VOMITING, #10 TAB Prov:PAOLO,ESTHER 12/24/16 Acetaminophen* (Tylophen*) 500 Mg Capsule, 1 CAP PO Q6H Y for PAIN AND OR ELEVATED TEMP, #20 CAP Prov:PAOLO,ESTHER 12/24/16 Vit No.78/Iron/FA (Prenatabs FA Tablet) 1 Each Tablet, 1 EACH PO DAILY for 30 Days, #30 TAB Prov:PAOLO,ESTHER 12/24/16 Ondansetron (Ondansetron Odt) 4 Mg Tab.rapdis, 4 MG PO Q6H Y for NAUSEA AND/OR VOMITING, #10 TAB Prov:PAOLO,ESTHER 12/14/16 Acetaminophen* (Tylophen*) 500 Mg Capsule, 1 CAP PO Q6H Y for PAIN AND OR ELEVATED TEMP, #20 CAP Prov:PAOLO,ESTHER 12/14/16 Tramadol HCl (Tramadol HCl) 50 Mg Tablet, 50 MG PO Q6 Y for SEVERE PAIN LEVEL 7- 10, #20 TAB Prov:TESFAYE IQBAL NP 10/04/16 Ibuprofen* (Motrin*) 600 Mg Tab, 600 MG PO Q6H Y for PAIN AND OR ELEVATED TEMP, #30 TAB Prov:TESFAYE IQBAL NP 10/04/16 Acetaminophen with Codeine (Acetaminophen-Cod #3 Tablet) 1 Each Tablet, 1 TAB PO Q6H Y for PAIN, #7 TAB Prov:DANIEL BERGER MD 08/14/16 Ibuprofen* (Motrin*) 600 Mg Tab, 600 MG PO Q6, #15 TAB Prov:DANIEL BERGER MD 08/14/16 Acetaminophen* (Tylenol*) 325 Mg Tablet, 1 TAB PO Q6 Y for PAIN AND OR ELEVATED TEMP, #20 TAB Prov:SUZIE SIMS PA-C 08/03/16 Albuterol Sulfate* (Albuterol Sulfate* Neb) 0.083%-3 Ml Neb, 2.5 MG NEB Q4 Y for SHORTNESS OF BREATH, #30 EA Prov:MITCHELL IGLESIAS PA-C 07/08/16 Prednisone* (Prednisone*) 20 Mg Tab, 40 MG PO DAILY for 4 Days, #8 TAB Prov:MITCHELL IGLESIAS PA-C 07/08/16 Albuterol Sulfate* (Ventolin HFA*) 18 Gm Hfa.aer.ad, 2 PUFF INHALATION Q4H, #1 INHALER Prov:RILEY PARIS NP 04/26/16 Allergies Allergies: Coded Allergies: No Known Allergy (Unverified , 01/19/17) PMhx/Soc History of Surgery: No (breast tumor) Anesthesia Reaction: No Hx Neurological Disorder: No Hx Respiratory Disorders: Yes (ASTHMA) Hx Cardiac Disorders: No Hx Psychiatric Problems: No Hx Miscellaneous Medical Probl: Yes (miscarriage 07/2016) Hx Alcohol Use: No Hx Substance Use: No Hx Tobacco Use: No Smoking Status: Never smoker Physical Exam Vitals Vital Signs Date Time Temp Pulse Resp B/P Pulse Ox O2 Delivery O2 Flow Rate FiO2 01/19/17 00:08 98.3 88 20 134/69 100 Physical Exam Const: Well-nourished well-appearing well-hydrated 26-year-old female in no acute distressEyes: Normal Conjunctiva ENT: Normal External Ears, Nose and Mouth mucous membranes moist Resp: Clear to auscultation bilaterally Cardio: Regular rate and rhythm, no murmurs Abd: Soft, symmetric abdomen, pelvic tenderness, no CVA tenderness Neur: Awake and alert Psych: Normal Mood and Affect Result Diagram: 01/19/17 0130 Results 24 hrs Laboratory Tests Test 01/19/17 01:30 White Blood Count 8.810^3/ul Red Blood Count 4.5110^6/ul Hemoglobin 12.6g/dl Hematocrit 37.3% Mean Corpuscular Volume 82.7fl Mean Corpuscular Hemoglobin 27.9pg Mean Corpuscular Hemoglobin Concent 33.8g/dl Red Cell Distribution Width 13.8% Platelet Count 20573^3/UL Mean Platelet Volume 9.3fl Neutrophils % 51.7% Lymphocytes % 38.0% Monocytes % 8.1% Eosinophils % 1.7% Basophils % 0.2% Nucleated Red Blood Cells % 0.0/100WBC Neutrophils # 4.510^3/ul Lymphocytes # 3.310^3/ul Monocytes # 0.710^3/ul Eosinophils # 0.210^3/ul Basophils # 0.010^3/ul Nucleated Red Blood Cells # 0.010^3/ul Urine Color STRAW Urine Clarity CLEAR Urine pH 8.0 Urine Specific [place] 1.002 Urine Ketones NEGATIVEmg/dL Urine Nitrite NEGATIVEmg/dL Urine Bilirubin NEGATIVEmg/dL Urine Urobilinogen NEGATIVEmg/dL Urine Leukocyte Esterase NEGATIVELeu/ul Urine Microscopic RBC 0/HPF Urine Microscopic WBC 0/HPF Urine Squamous Epithelial Cells FEW/HPF Urine Hemoglobin 3+mg/dL Urine Glucose NEGATIVEmg/dL Urine Total Protein NEGATIVEmg/dl Beta HCG, Quantitative 131714.0mIU/ml Urine Opiates Screen Negative Urine Barbiturates Negative Urine Amphetamines Screen Negative Urine Benzodiazepines Screen Negative Urine Cocaine Screen Negative Urine Cannabinoids Negative Current Medications Medications (Trade) Dose Ordered Sig/Kallie Route PRN Reason Start Time Stop Time Status Last Admin Dose Admin Acetaminophen (Tylenol Tab) 650 mg ONCE STAT PO 01/19/17 00:57 01/19/17 00:59 DC 01/19/17 01:24 Complete blood count negative for evidence of hemorrhage or acute infection Urinalysis negative for evidence of leukocytosis, nitrates, positive for hematuria this is not an abnormal finding with vaginal bleeding. Drug screen negative UA hCG beta quantitative is normal 484546.0mlU/ml Procedures/MDM PROCEDURE: US OB. CLINICAL INDICATION: Pain. Vaginal bleeding.. TECHNIQUE: Multiple sonographic images of the pelvis were obtained. Transabdominal and transvaginal views of the pelvis are available for review. The images were reviewed on a PACS workstation. COMPARISON: 05/2016 FINDINGS: A twin live intrauterine is identified. Fetus A: heart rate is 159 beats per minute. The crown-rump length is 4.56 mm which corresponds to 11 weeks 3 days gestational age by ultrasound criteria. Estimated date of delivery is 08/07/2017 .. No subchorionic hemorrhage is identified. Fetus B: heart rate is 168 beats per minute. The crown-rump length is 4.73 mm which corresponds to 11 weeks 4 days gestational age by ultrasound criteria. Estimated date of delivery is 08/06/2017. No subchorionic hemorrhage is identified. The ovaries were not identified. There is no adnexal mass or free fluid. IMPRESSION: 1. Twin live intrauterine gestation of approximately 11 weeks 3 days and 11 weeks 4 days. 2. No subchorionic hemorrhage. Electronically viewed and signed by .Jose Juan Camarena MD, on 01/19/2017 01:54 This 26-year-old female presents to emergency department for evaluation of pelvic pain and abdominal bleeding, patient reports bleeding started an hour ago , patient states she has pain radiating from her pelvis to her low back, patient is currently with twins approximately 11 weeks 4 days. A poor historian, patient continues to very face and gurney, she is difficult to understand, patient's sister and brother are in room with her, no one in room is giving much details to current complaint. Patient reports she has a rosalinda- pad in place. Emergency room course includes history and physical exam, history difficult to obtain as stated above, plan to get screening labs, ultrasound, and treat patient for pain, ultrasound documents twin live intrauterine gestations approximately 11 weeks 3 days and 11 weeks 4 days, no sub-chorionic hemorrhage. 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 Patient is stable with no new complaints during ER course, clinically there is no current evidence to suggest meningitis, sepsis, acute abdomen, threatened miscarriage, complete placenta abrupt urinary tract infection, pyelonephritis or any other emergent condition appearing to require further evaluation or hospitalization. I feel the patient is stable for discharge at this time. I have discussed results, examination findings, the treatment plan with the patient and family present prior to discharge. Indications for emergent reevaluation, side effects of medication were also discussed. All questions were answered. Patient verbalizes understanding and agrees with plan of care. Departure Diagnosis: Primary Impression: Vaginal bleeding in patient at less than 20 weeks gestation Condition: Good Patient Instructions: Bleeding During Early Additional Instructions: Thank you for for coming to [facility] for your care today. Please ask your nurse or provider if you have questions about your care today and do not leave until all your questions have been answered. Please use any medications given as directed and follow-up with your doctor (or the doctor you were referred to) in the next 2-3 days. If you do not have a primary care doctor you may follow up at the [facility] (listed below). You may also use motrin and tylenol as needed for fever and/or pain unless instructed otherwise by your provider or nurse. Indications for more urgent follow-up have been discussed, but you may return to the Emergency Department at ANY time for any worrisome or worsening symptoms. If you have abdominal pain, please know that no test or exam you received is perfect and you should follow up within 8 hours for continued pain. If you had any imaging studies today, such as an X-Ray or CT Scan, these studies will be reviewed later by a radiologist. You will be called if there are important findings that were not identified today, so make sure the contact information you provided at registration is correct. If you received any narcotic pain control medicine today, such as Vicodin, Morphine or Dilaudid, your coordination and judgment may be affected for a number of hours. Please do not drive or operate heavy machinery, and you may want someone to assist you at home. If you were given a prescription for narcotic medication, be aware that it is very addictive- use sparingly and only if necessary. ESTHER BOONE Jan 19, 2017 00:56
--- NOTE | 2017-01-19 01:54 | RADRPT ---
PROCEDURE: US OB. CLINICAL INDICATION: Pain. Vaginal bleeding.. TECHNIQUE: Multiple sonographic images of the pelvis were obtained. Transabdominal and transvagin al views of the pelvis are available for review. The images were reviewed on a PACS workstation. COMPARISON: 05/2016 FINDINGS: A twin live intrauterine is identified. Fetus A: heart rate is 159 beats per minute. The crown-rump length is 4.56 mm which correspon ds to 11 weeks 3 days gestational age by ultrasound criteria. Estimated date of delivery is 018 .. No subchorionic hemorrhage is identified. Fetus B: heart rate is 168 beats per minute. The crown-rump length is 4.73 mm which correspon ds to 11 weeks 4 days gestational age by ultrasound criteria. Estimated date of delivery is 018. No subchorionic hemorrhage is identified. The ovaries were not identified. There is no adnexal mass or free fluid. IMPRESSION: 1. Twin live intrauterine gestation of approximately 11 weeks 3 days and 11 weeks 4 days. 2. No subchorionic hemorrhage. RPTAT: HMVK .Jose Juan Camarena MD, MD Date Time Electronically viewed and signed by .Jose Juan Camarena MD, MD on 01/19/2017 01:54 .K/
[2017-01-19 01:58] LABS: BASOPHILS % 0.2 % (0.0-2.0); EOSINOPHILS # 0.2 10^3/ul (0.0-0.5); EOSINOPHILS % 1.7 % (0.0-7.0); HEMATOCRIT 37.3 % (37.0-47.0); HEMOGLOBIN 12.6 g/dl (12.0-16.0); LYMPHOCYTES # 3.3 10^3/ul (0.8-2.9); MEAN CORPUSCULAR HEMOGLOBIN 27.9 pg (29.0-33.0); MEAN CORPUSCULAR HGB CONC 33.8 g/dl (32.0-37.0); MEAN CORPUSCULAR VOLUME 82.7 fl (82.0-101.0); MEAN PLATELET VOLUME 9.3 fl (7.4-10.4); MONOCYTE # 0.7 10^3/ul (0.3-0.9); MONOCYTES % 8.1 % (0.0-11.0); NEUTROPHIL # 4.5 10^3/ul (1.6-7.5); NEUTROPHILS % 51.7 % (39.0-77.0); PLATELET COUNT 256 10^3/UL (140-415); RED BLOOD COUNT 4.51 10^6/ul (4.20-5.40); RED CELL DISTRIBUTION WIDTH 13.8 % (11.5-14.5); WHITE BLOOD COUNT 8.8 10^3/ul (4.8-10.8)
[2017-01-19 02:04] LABS: ADD UMIC YES; UR ASCORBIC ACID NEGATIVE (NEGATIVE); UR BILIRUBIN (Dip) NEGATIVE (NEGATIVE); UR BLOOD (Dip) 3+ mg/dL (NEGATIVE); UR CLARITY CLEAR (CLEAR); UR COLOR STRAW (YELLOW); UR GLUCOSE (Dip) NEGATIVE (NEGATIVE); UR KETONES (Dip) NEGATIVE (NEGATIVE); UR LEUKOCYTE ESTERASE (Dip) NEGATIVE Leu/ul (NEGATIVE); UR NITRITE (Dip) NEGATIVE (NEGATIVE); UR RBC 0 /HPF (0-5); UR SPECIFIC GRAVITY (Dip) 1.002 (1.003-1.030); UR SQUAMOUS EPITHELIAL CELL FEW /HPF (FEW); UR TOTAL PROTEIN (Dip) NEGATIVE (NEGATIVE); UR UROBILINOGEN (Dip) NEGATIVE (NEGATIVE)
[2017-01-19 02:18] LABS: BARBITURATES Negative (NEGATIVE); BENZODIAZEPINES Negative (NEGATIVE); CANNABINOIDS Negative (NEGATIVE); COCAINE Negative (NEGATIVE); OPIATES Negative (NEGATIVE)
[2017-01-19 03:07] VITALS: BP 108/61; PULSE 74; RESP 16; TEMP 98
== END 2017-01-19 03:16 | disposition home or self-care (01) ==
LOC: FTE 00:04
DX: O20.9 Hemorrhage in early pregnancy, unspecified (principal); R10.2 Pelvic and perineal pain; Z3A.11 11 weeks gestation of pregnancy
CPT/HCPCS: 36415; 76801; 76802; 80307; 81001; 84702; 85025; Z7502; Z7610

== ENCOUNTER 2017-02-15 04:31 | Emergency (ER) | payer MEDICAID ==
[~2017-02-15] VITALS: Ht 165.1 cm; Wt 73.7 kg
[2017-02-15 04:48] VITALS: Ht 165.1 cm; Wt 73.7 kg
[2017-02-15] MEDS ORDERED: ALBUTEROL 0.5% (NEB) 2.5 MG/0.5 ML AMP INH STA (06:20)
[2017-02-15] MEDS ORDERED: IPRATROPIUM (NEB) 0.5 MG/2.5 ML AMP INH STA (06:20)
--- NOTE | 2017-02-15 07:34 | ERD ---
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 Hx asthma. -n/v HPI This is a 27-year-old female who presents to the emergency room for evaluation of shortness of breath. The patient does state that she has a history of asthma and this does feel similar to previous asthma. Patient denies any chest pain at this time, she denies any nausea, vomiting or diarrhea. The patient states that she is approximately 12 weeks . The patient states that he has not had any vaginal bleeding or vaginal discharge ROS All systems reviewed and are negative except as per history of present illness. Medications Home Meds Discontinued Scripts Ondansetron Hcl* (Zofran*) 4 Mg Tablet, 4 MG PO Q6H for NAUSEA AND/OR VOMITING, #10 TAB Prov:PAOLO,ESTHER 12/24/16 Acetaminophen* (Tylophen*) 500 Mg Capsule, 1 CAP PO Q6H Y for PAIN AND OR ELEVATED TEMP, #20 CAP Prov:PAOLO,ESTHER 12/24/16 Vit No.78/Iron/FA (Prenatabs FA Tablet) 1 Each Tablet, 1 EACH PO DAILY for 30 Days, #30 TAB Prov:PAOLO,ESTHER 12/24/16 Ondansetron (Ondansetron Odt) 4 Mg Tab.rapdis, 4 MG PO Q6H Y for NAUSEA AND/OR VOMITING, #10 TAB Prov:PAOLO,ESTHER 12/14/16 Acetaminophen* (Tylophen*) 500 Mg Capsule, 1 CAP PO Q6H Y for PAIN AND OR ELEVATED TEMP, #20 CAP Prov:PAOLO,ESTHER 12/14/16 Tramadol HCl (Tramadol HCl) 50 Mg Tablet, 50 MG PO Q6 Y for SEVERE PAIN LEVEL 7- 10, #20 TAB Prov:TESFAYE IQBAL NP 10/04/16 Ibuprofen* (Motrin*) 600 Mg Tab, 600 MG PO Q6H Y for PAIN AND OR ELEVATED TEMP, #30 TAB Prov:TESFAYE IQBAL NP 10/04/16 Acetaminophen with Codeine (Acetaminophen-Cod #3 Tablet) 1 Each Tablet, 1 TAB PO Q6H Y for PAIN, #7 TAB Prov:DANIEL BERGER MD 08/14/16 Ibuprofen* (Motrin*) 600 Mg Tab, 600 MG PO Q6, #15 TAB Prov:DANIEL BERGER MD 08/14/16 Acetaminophen* (Tylenol*) 325 Mg Tablet, 1 TAB PO Q6 Y for PAIN AND OR ELEVATED TEMP, #20 TAB Prov:SUZIE SIMS PA-C 08/03/16 Albuterol Sulfate* (Albuterol Sulfate* Neb) 0.083%-3 Ml Neb, 2.5 MG NEB Q4 Y for SHORTNESS OF BREATH, #30 EA Prov:MITCHELL IGLESIAS PA-C 07/08/16 Prednisone* (Prednisone*) 20 Mg Tab, 40 MG PO DAILY for 4 Days, #8 TAB Prov:MITCHELL IGLESIAS PA-C 07/08/16 Albuterol Sulfate* (Ventolin HFA*) 18 Gm Hfa.aer.ad, 2 PUFF INHALATION Q4H, #1 INHALER Prov:RILEY PARIS NP 04/26/16 Allergies Allergies: Coded Allergies: No Known Allergy (Unverified , 02/15/17) PMhx/Soc History of Surgery: No Anesthesia Reaction: No Hx Neurological Disorder: No Hx Respiratory Disorders: Yes (ASTHMA) Hx Cardiac Disorders: No Hx Psychiatric Problems: No Hx Miscellaneous Medical Probl: No Hx Alcohol Use: No Hx Substance Use: No Hx Tobacco Use: No Smoking Status: Never smoker Physical Exam Vitals Vital Signs Date Time Temp Pulse Resp B/P Pulse Ox O2 Delivery O2 Flow Rate FiO2 02/15/17 06:49 92 18 95 21 02/15/17 04:48 98.4 83 18 107/60 100 Physical Exam INITIAL VITAL SIGNS: Reviewed by me GENERAL: The patient is well developed and appropriate for usual state of health in no apparent distress HEENT: Pupils equal, round, and reactive to light. EOMI. There is no scleral icterus. NECK: C-spine is soft and supple, there is no meningismus. There is no cervical lymphadenopathy. LUNGS: Wheezing bilaterally HEART: Regular rate and rhythm, no murmurs, clicks, rubs or gallops. ABDOMEN: Soft, non-tender, non-distended. There are bowel sounds in all four quadrants. No rebound or guarding. EXTREMITIES: There is no peripheral cyanosis or edema. No focal swelling or erythema. NEUROLOGICAL: The patient moves all four extremities with 5/5 strength. Cranial nerves II - XII are intact. Normal gait. Alert and oriented SKIN: There is no apparent rash or petechiae. HEME/LYMPHATIC: There is no evidence of excessive bruising or lymphedema. PSYCHIATRIC: The patient does not appear anxious or depressed. Results 24 hrs Current Medications Medications (Trade) Dose Ordered Sig/Kallie Route PRN Reason Start Time Stop Time Status Last Admin Dose Admin Albuterol (Proventil 0.5% (Neb)) 10 mg ONCE STAT INH 02/15/17 06:20 02/15/17 06:21 DC 02/15/17 06:48 Ipratropium [place] (Atrovent 0.02% (Neb)) 1 mg ONCE STAT INH 02/15/17 06:20 02/15/17 06:21 DC 02/15/17 06:48 Procedures/MDM This 27-year-old female presents to the emergency room for evaluation of wheezing and shortness of breath. The patient does have a history of asthma and states that this does feel similar to her previous asthma attacks. The patient was not hypoxic, she was not tachycardic. She was given a breathing treatment of albuterol, and Atrovent. When I reevaluated this patient the patient is sitting in bed comfortably. Her pulse ox is 100% on room air and she is in no respiratory distress with no wheezing at this time. The patient will be discharged home with a prescription for albuterol. I doubt pulmonary embolism at this time PERC Criteria Assessment: Age > 50: No HR > 100: No 02 < 95%: No H/o DVT/PE: No Recent trauma/surgery: No Hemoptysis: No Exogenous Estrogen: No Unilateral Leg swelling: No Pretest probability > 15%: No [Less than 2% risk of PE. No further work up is necessary] Departure Diagnosis: Primary Impression: Asthma exacerbation Condition: Stable ELIJAH CORTES DO Feb 15, 2017 07:34
[2017-02-15] MEDS ORDERED: ALBU8.5H3 INH (07:35)
[2017-02-15 08:15] VITALS: BP 116/75; PULSE 108; RESP 20; TEMP 99.1
== END 2017-02-15 08:21 | disposition home or self-care (01) ==
LOC: E/R 04:31
DX: J45.901 Unspecified asthma with (acute) exacerbation (principal)
CPT/HCPCS: 94644; Z7502; Z7610

== ENCOUNTER 2017-04-17 18:15 | Outpatient (CLI) | END 2017-04-17 20:35 | disposition home or self-care (01) ==

== ENCOUNTER 2017-04-19 11:40 | Inpatient (IN) | END 2017-06-11 21:55 | disposition home or self-care (01) | DRG 781 ==

== ENCOUNTER 2017-06-28 04:48 | Inpatient (IN) | END 2017-07-01 14:55 | disposition home or self-care (01) | DRG 765 ==

== ENCOUNTER 2017-09-06 22:39 | Emergency (ER) | END 2017-09-07 00:02 | disposition home or self-care (01) ==

== ENCOUNTER 2017-10-08 01:54 | Emergency (ER) | END 2017-10-08 03:37 | disposition home or self-care (01) ==

== ENCOUNTER 2018-04-20 12:06 | Emergency (ER) | payer MEDICAID ==
[~2018-04-20] VITALS: Ht 167.6 cm; Wt 78.4 kg
[~2018-04-20 12:06] MED LIST changes: -ACET1TAB40 PO; -ACET325T33 PO; -ACET500C5 PO; -ALBU18HF INHALATION; -ALBU2.5V3 NEB; +ALBU8.5H8 INH; +CALC600T24 PO; -ONDA4TAB14 PO; -ONDA4TAB8 PO; -PRED20TA PO; -PREN-17 PO; +PREN-93 PO; -TRAM50TA2 PO
[2018-04-20 12:12] VITALS: Ht 167.6 cm; Wt 78.4 kg
--- NOTE | 2018-04-20 15:08 | ERD ---
ER Documentation Chief Complaint Chief Complaint COUGH FEVER HPI 28-year-old female, previously healthy, presents to the emergency department, complaining of upper respiratory symptoms for 3 days, including cough, runny nose and chest congestion. Otherwise, no fever, no chills, no difficulty breathing, no difficulty swallowing. No medications taken at this time. ROS All systems reviewed and are negative except as per history of present illness. Medications Home Meds Active Scripts Ibuprofen* (Ibuprofen*) 600 Mg Tablet, 600 MG PO Q8, #15 TAB Prov:ANTHONY REEYS MD 04/20/18 Oseltamivir Phosphate* (Tamiflu*) 75 Mg Capsule, 75 MG PO BID for 5 Days, CAP Prov:ANTHONY REYES MD 04/20/18 Ibuprofen* (Motrin*) 600 Mg Tab, 600 MG PO Q6, #30 TAB Prov:DAVID VO 10/08/17 Albuterol Sulfate* (Proair HFA*) 8.5 Gm Hfa.aer.ad, 2 PUFF INH Q4H PRN for WHEEZING AND SOB, #1 INHALER Prov:ELIJAH CORTES DO 02/15/17 Reported Medications Vit No.124/Iron/FA ( Vitamin Tablet) 1 Each Tablet, 1 EACH PO DAILY, TAB 06/21/17 Calcium Carbonate* (Calcium Carbonate*) 600 MG Ca Tab, 600 MG PO, TAB 06/21/17 Allergies Allergies: Coded Allergies: No Known Allergy (Unverified , 04/20/18) PMhx/Soc History of Surgery: No Anesthesia Reaction: No Hx Neurological Disorder: No Hx Respiratory Disorders: Yes (ASTHMA) Hx Cardiac Disorders: No Hx Psychiatric Problems: No Hx Miscellaneous Medical Probl: No Hx Alcohol Use: No Hx Substance Use: No Hx Tobacco Use: No Smoking Status: Never smoker FmHx Family History: No diabetes, No coronary disease Physical Exam Vitals Vital Signs Date Temp Pulse Resp B/P (MAP) Pulse Ox O2 O2 Flow FiO2 Time Delivery Rate 04/20/18 98.2 94 17 133/77 99 12:12 (95) Physical Exam Const: No acute distress Head: Atraumatic Eyes: Injected erythematous conjunctiva ENT: Erythematous oropharynx, normal External Ears Neck: Full range of motion. No meningismus. Resp: Clear to auscultation bilaterally Cardio: Regular rate and rhythm, no murmurs Abd: Soft, non tender, non distended. Normal bowel sounds Skin: No petechiae or rashes Back: No midline or flank tenderness Ext: No cyanosis, or edema Neur: Awake and alert Psych: Normal Mood and Affect Procedures/MDM Differential diagnosis include but not limited to: Respiratory infection ba cterial/viral/fungal. Asthma, pneumonitis, allergies, GERD. Less likely foreign body aspiration, cardiac related, aspiration pneumonia, malignancy. Physical examination and clinical presentation consistent most likely with viral syndrome. During the ED course the patient remained stable, no new complaints. Clinical impression discussed with the patient who agrees with management. The patient is stable to be treated outpatient and will be discharged home. antibiotics not indicated at this time. some side effects of prescribed medications (headache, rash, nausea, vomiting, diarrhea, drowsiness, hypertension, interactions with other medications) were reviewed. The patient was instructed to follow up with the primary care provider in the next 48h. If symptoms persist, worsen or new symptoms develop, then patient should return to the ED immediately. Disclaimer: Inadvertent spelling and grammatical errors are likely due to EHR/dictation software use and do not reflect on the overall quality of patient care. Also, please note that the electronic time recorded on this note does not necessarily reflect the actual time of the patient encounter. Departure Diagnosis: Primary Impression: Influenza-like illness Condition: Stable Additional Instructions: Thank you very much for allowing us to participate in your care. Your health and safety is our top priority at [facility]. Call your primary care doctor TOMORROW for an appointment during the next 2-4 days and bring all the information and medications prescribed. Have prescriptions filled and follow precisely the directions on the label. If the symptoms get worse and your provider is unavailable, return to the Emergency Department immediately. ANTHONY REYES MD Apr 20, 2018 15:08
[2018-04-20] MEDS ORDERED: IBUP-1542 PO (15:53)
[2018-04-20] MEDS ORDERED: OSEL75CA23 PO (15:53)
[2018-04-20 16:53] VITALS: BP 112/79; PULSE 95; RESP 18
== END 2018-04-20 16:54 | disposition home or self-care (01) ==
LOC: FTE 12:06
DX: R05 Cough (principal); R50.9 Fever, unspecified; R09.89 Other specified symptoms and signs involving the circulatory and respiratory systems; J45.909 Unspecified asthma, uncomplicated
CPT/HCPCS: 99283